=== PATIENT | female | born 1940 | race Caucasian/White ===

== ENCOUNTER 2022-05-23 10:16 | Inpatient (IN) | payer OTHER ==
[~2022-05-23] VITALS: Ht 134.6 cm; Wt 46.4 kg
--- NOTE | 2022-05-23 10:30 | NUR ---
MELINDA AP unit 355 From [facility] Loss of appetite/eating <20% of meals since april". The patient is alert to her name. In room air. Respiration regular and unlabored. The patient is attached to the monitor. Warm blanket provided for comfort. Will continue to monitor the patient.
--- NOTE | 2022-05-23 10:36 | NUR ---
covid antigen swab done and sent to the lab
[2022-05-23] MEDS ORDERED: ACET-2605 PO (10:37)
[2022-05-23] MEDS ORDERED: MELA5TAB PO (10:37)
[2022-05-23] MEDS ORDERED: ASPI-1169 PO (10:37)
[2022-05-23] MEDS ORDERED: LEVO25TA9 GT (10:37)
[2022-05-23] MEDS ORDERED: ATOR10TA PO (10:37)
[2022-05-23] MEDS ORDERED: GLUC1KIT IM (10:37)
[2022-05-23] MEDS ORDERED: DEXT38GE12 PO (10:37)
[2022-05-23] MEDS ORDERED: MIRT7.5T10 PO (10:37)
[2022-05-23] MEDS ORDERED: ACET-868 PO (10:37)
[2022-05-23] MEDS ORDERED: METF-440 PO (10:37)
--- NOTE | 2022-05-23 10:51 | NUR ---
IV LINE IS ESTABLISHED, BLOOD SPECIMEN COLLECTED AND SENT TO THE LAB. THE LINE IS SALINE LOCKED.
[2022-05-23 11:00] LABS: BASOPHILS % (AUTO) 0.4 % (0.0-2.0); EOSINOPHILS % (AUTO) 0.7 % (0.0-6.0); HEMATOCRIT 41 % (33-45); HEMOGLOBIN 13.4 g/dL (11.5-14.8); LYMPHOCYTES # (AUTO) 0.7 K/uL (0.8-4.8); LYMPHOCYTES % (AUTO) 11.3 % (20.0-44.0); MEAN CORPUSCULAR HGB CONC 33 g/dl (31.0-36.0); MEAN CORPUSCULAR VOLUME 92 fL (82-100); MONOCYTES # (AUTO) 0.5 K/uL (0.1-1.30); MONOCYTES % (AUTO) 7.5 % (2.0-12.0); NEUTROPHILS # (AUTO) 4.8 K/uL (1.8-8.9); NEUTROPHILS % (AUTO) 80.1 % (43.0-81.0); PLATELET COUNT (AUTO) 433 K/uL (150-450); RED BLOOD CELL COUNT(AUTO) 4.45 MIL/uL (4.0-5.2)
[2022-05-23] MEDS ORDERED: IV NS 0.9% 1,000 ML BAG IV ONE (11:00)
[2022-05-23 11:14] LABS: CALCIUM, SERUM 8.4 mg/dL (8.5-10.1); CARBON DIOXIDE 30 mmol/L (21-32); CHLORIDE 105 mmol/L (98-107); CREATININE 0.9 mg/dL (0.6-1.3); GLUCOSE 134 mg/dL (74-106); SODIUM SERUM 141 mmol/L (136-145); UREA NITROGEN, BLOOD 35 mg/dL (7-18)
[2022-05-23 11:20] LABS: ALANINE AMINOTRANSFERASE 12 U/L (12-78); ALBUMIN 2.6 g/dL (3.4-5.0); ALKALINE PHOSPHATASE 170 U/L (46-116); ASPARTATE AMINOTRANSFERASE 18 U/L (15-37); BILIRUBIN,DIRECT 0.4 mg/dL (0.0-0.2); BILIRUBIN,TOTAL 1.4 mg/dL (0.2-1.0); LIPASE 78 U/L (73-393)
--- NOTE | 2022-05-23 11:39 | NUR ---
URINE COLLECTED AND SENT TO THE LAB
[2022-05-23 12:16] LABS: BILIRUBIN,URINE SMALL (NEGATIVE); COLOR,URINE DARK YELLOW (YELLOW); LEUKOCYTE ESTERASE ,URINE NEGATIVE (NEGATIVE); NITRITE, URINE NEGATIVE (NEGATIVE); PROTEIN,URINE 30 mg/dl (NEGATIVE); UGLUCOSE 100 MG/DL mg/dL (NEGATIVE)
[2022-05-23 13:13] LABS: BACTERIA,URINE Few /HPF (None Seen); RBC,URINE 0-2 /HPF (0-2); WBC,URINE 0-2 /HPF (0-3)
[2022-05-23 13:14] LABS: MUCUS,URINE Moderate /LPF (None Seen); URINE AMORPHOUS URATE Few /HPF (None Seen)
[2022-05-23] MEDS ORDERED: PIPERACILLIN /TAZOBACTAM 3.375 G in IV D5W 50 ML IV ONE (14:00)
--- NOTE | 2022-05-23 14:40 | NUR ---
GOING TO 115.2 ADMITING AWARE.
--- NOTE | 2022-05-23 14:58 | NUR ---
REPORT GIVEN TO NURSE NEUMANN FOR MADYSON
--- NOTE | 2022-05-23 15:21 | NUR ---
PT TRANFERRED TO MED SURG FLOOR IN STABLE CONDITION
--- NOTE | 2022-05-23 15:30 | NUR ---
RN NOTE RECEIVED PATIENT FOR MADYSON IN STABLE CONDITION
[2022-05-23 16:00] VITALS: BP 138/85
[2022-05-23] MEDS ORDERED: DEXTROSE 50%-WATER 50 ML DISP.SYRIN IV PRN (16:00)
[2022-05-23] MEDS ORDERED: ONDANSETRON HCL/PF 4 MG/2 ML VIAL IVP PRN (16:00)
[2022-05-23] MEDS: CEFTRIAXONE 1 G in IV D5W 50 ML IV SCH (17:47)
[2022-05-23] MEDS: PANTOPRAZOLE 40 MG VIAL IV SCH (17:48)
[2022-05-23] MEDS: BLOOD SUGAR DIAGNOSTIC 1 EACH STRIP IN SCH (17:48)
[2022-05-23] MEDS: IV D5/ 0.9% NACL 1,000 ML IV PRN (17:48)
[2022-05-23] MEDS: INSULIN REGULAR, HUMAN 100 UNIT/ML 3 ML VIAL SQ PRN (17:49)
--- NOTE | 2022-05-23 19:10 | NUR ---
RN NOTES RECEIVED PT FOR CONTINUITY OF CARE. PATIENT A/OX1 IN NO S/SX OF ACUTE DISTRESS AT THIS TIME; CURRENTLY ON 2L OF 02 VIA NC; WITH 02 SAT >95% AT THIS TIME. FAMILY @BEDSIDE NO IV ACCESS AT THIS TIME, WILL ATTEMPT TO PLACE NEW IV LINE WITHIN THE SHIFT ENSURE SAFETY MEASURES WITHIN THE SHIFT. PATIENT BED ALARM IS ON. HEAD OF BED ELEVATED. BED IS LOCKED, IN LOWEST POSITION AND SIDE RAILS UP. CALL LIGHT WITHIN REACH OF THE PATIENT. WILL CONTINUE TO MONITOR AND REASSESS FOR ANY CHANGES AND WILL CARRY OUT ANY ONGOING AND ACTIVE MD ORDER.
--- NOTE | 2022-05-23 19:19 | NUR ---
RN NOTE SPOKE TO KEN (PATIENTS DAUGHTER) RECEIVED PHONE CONSENT FOR THORACENTESIS AND ACUTE MEDICAL RESTRAINTS IF NEEDED. KEKE LA SPOKE WITH DAUGHTER WELL.
--- NOTE | 2022-05-23 19:21 | NUR ---
RN NOTE PATIENT RESTING IN BED A/OX2 FAMILY MEMBERS AT BED SIDE ON RA WITH NO COMPLAINTS OF SOB OR PAIN. PATIENT PENDING IV ACCES. SAFETY MEASURES IN PLACE WILL ENDORSE TO NIGHT NURSE FOR MADYSON.
--- NOTE | 2022-05-23 19:45 | NUR ---
RN NOTES FACILITATED INSERTION OF ADDITIONAL IV LINE/ACCESS @ R HAND G#24; SALINE LOCK, SECURED, INTACT AND FLUSHING WELL. SOLAR LAB TECHNICIAN MADE AWARE.
[2022-05-23 20:00] VITALS: BP 115/74
--- NOTE | 2022-05-23 21:50 | NUR ---
RN NOTES PT NOTED TO BE MORE LETHARGIC AND UNRESPONSIVE, V/S WNL HR: 93 RR: 17, TEMP 98.1, O2 SAT 99% @2L OF O2 BP: 118/68 . BLOOD SUGAR 120, EXPANDING MACHINE OPERATOR MADE AWARE AND NOTIFIED ONCALL ( LINN RIVERA) SECURED ORDER TO CHANGE STATUS TO TELE, WILL CONTINUE TO MONITOR AND ASSESS THROUGHOUT THE SHIFT.
[2022-05-24] VITALS: BP 123/77
[2022-05-24] MEDS: BLOOD SUGAR DIAGNOSTIC 1 EACH STRIP IN SCH ×4 (00:29→17:09)
[2022-05-24] MEDS: INSULIN REGULAR, HUMAN 100 UNIT/ML 3 ML VIAL SQ PRN ×3 (00:29→17:50)
--- NOTE | 2022-05-24 06:47 | NUR ---
RN CLOSING NOTE: PATIENT REMAINS IN ROOM IN NO SIGNS OF RESPIRATORY DISTRESS, PATIENT STILL ON 2L OF O2 VIA NC;TOLERATING WELL SATURATING @ >95% SP02. PT NOW ON TELE STATUS. PLAN TODAY FOR THORACENTESIS CONSENT SECURED; IN PT'S CHART. SAFETY MEASURES IMPLEMENTED, BED IN LOWEST POSITION, LOCKED, SIDE RAILS UP, CALL LIGHT WITHIN REACH. ALL NEEDS AND ORDERS ADDRESSED DURING THE SHIFT. IV ACCESS MAINTAINED INTACT, SECURED AND FLUSHING WELL. ALL DUE MEDS GIVEN ORDERED & SCHEDULED ; PATIENT TOLERATED WELL. PATIENT KEPT CLEAN AND COMFORTABLE WITHIN THE SHIFT. PATIENT ENDORSED TO INCOMING SHIFT RN WITH STABLE VITAL SIGN AND FOR CONTINUITY OF CARE.
[2022-05-24 07:45] LABS: BASOPHILS % (AUTO) 0.5 % (0.0-2.0); EOSINOPHILS % (AUTO) 0.7 % (0.0-6.0); HEMATOCRIT 37 % (33-45); LYMPHOCYTES # (AUTO) 0.8 K/uL (0.8-4.8); LYMPHOCYTES % (AUTO) 11.2 % (20.0-44.0); MEAN CORPUSCULAR HGB CONC 33 g/dl (31.0-36.0); MEAN CORPUSCULAR VOLUME 92 fL (82-100); MONOCYTES # (AUTO) 0.7 K/uL (0.1-1.30); MONOCYTES % (AUTO) 9.8 % (2.0-12.0); NEUTROPHILS # (AUTO) 5.3 K/uL (1.8-8.9); NEUTROPHILS % (AUTO) 77.8 % (43.0-81.0); PLATELET COUNT (AUTO) 320 K/uL (150-450); RED BLOOD CELL COUNT(AUTO) 3.98 MIL/uL (4.0-5.2); WHITE BLOOD COUNT (AUTO) 6.8 K/uL (4.3-11.0)
[2022-05-24 08:00] VITALS: BP 118/70
[2022-05-24] MEDS: PANTOPRAZOLE 40 MG VIAL IV SCH ×2 (08:01→08:09)
[2022-05-24 08:03] LABS: CALCIUM, SERUM 7.7 mg/dL (8.5-10.1); CARBON DIOXIDE 27 mmol/L (21-32); CHLORIDE 109 mmol/L (98-107); CREATININE 0.8 mg/dL (0.6-1.3); GLUCOSE 130 mg/dL (74-106); MAGNESIUM 1.9 mg/dL (1.8-2.4); PHOSPHORUS 2.7 mg/dL (2.5-4.9); POTASSIUM 3.2 mmol/L (3.5-5.1); SODIUM SERUM 142 mmol/L (136-145); UREA NITROGEN, BLOOD 29 mg/dL (7-18)
[2022-05-24 08:04] LABS: CHOLESTEROL 117 mg/dL (<200); HDL CHOLESTEROL 56 mg/dL (40-60); LDL 52 mg/dL (0-99); TRIGLYCERIDES 53 mg/dL (30-150)
--- NOTE | 2022-05-24 10:03 | NUR ---
RN NOTE PT RECEIVED RESTING IN BED, AWAKE AND RESPONSIVE TO STIMULI. CONTINUES ON O2 @2L VIA NC. NOT IN RESPI DISTRESS. ALIDA MIDLINE IN PLACE WITH IVF D5NS @75/HR. TOLERATING WELL. PT REMAINS NPO. SAFETY MEASURES FOLLOWED. WILL CONT TO MONITOR.
[2022-05-24] MEDS: IV D5/ 0.9% NACL 1,000 ML IV PRN (11:10)
[2022-05-24] MEDS: POTASSIUM CL. PREMIX PERIPHER. 50 ML IV SCH ×2 (12:59→13:58)
--- NOTE | 2022-05-24 14:02 | NUR ---
RN NOTE PT S/P THORACENTESIS AND PARACENTESIS. STAT CHEST X RAY ORDERED. WILL CONT TO MONITOR. V/S STABLE. NO SS OF ACTIVE BLEEDING NOTED.
[2022-05-24 16:00] VITALS: BP 113/51
--- NOTE | 2022-05-24 16:29 | NUR ---
RN NOTE PLEURAL FLUID AND ASCITES SPECIMEN BROUGHT TO LAB.
[2022-05-24] MEDS: CEFTRIAXONE 1 G in IV D5W 50 ML IV SCH (17:09)
--- NOTE | 2022-05-24 19:09 | NUR ---
RN NOTE PT RESTING IN BED, AWAKE AND RESPONSIVE TO STIMULI. CONTINUES ON O2 @2L VIA NC. NOT IN RESPI DISTRESS. ALIDA MIDLINE IN PLACE WITH IVF D5NS @75/HR. TOLERATING WELL. PT REMAINS NPO. SAFETY MEASURES FOLLOWED. PT S/P THORACENTESIS AND PARACENTESIS. NO SS OF ACTIVE BLEEDING NOTED. V/S STABLE. DUE MEDS GIVEN, AM/PM CARE DONE. WILL CONT TO MONITOR.
--- NOTE | 2022-05-24 19:56 | NUR ---
RN OPENING NOTE PATIENT AWAKE IN BED. A/OX1. NO S/S OF DISTRESS, BREATHING WITHOUT DIFFICULTY ON 2L NC. ALIDA MIDLINE #18 INTACT AND PATENT W/ D5NS 75ML/HR. TELE READS SR 85. SAFETY MEASURES IN PLACE: BED LOCKED AND AT LOWEST POSITION, RAILS UP X2, CALL LEVINE WITHIN REACH. WILL CONTINUE TO MONITOR THE PATIENT.
[2022-05-25 00:01] VITALS: BP 104/53
[2022-05-25] MEDS: BLOOD SUGAR DIAGNOSTIC 1 EACH STRIP IN SCH ×3 (00:44→17:47)
[2022-05-25] MEDS: INSULIN REGULAR, HUMAN 100 UNIT/ML 3 ML VIAL SQ PRN (00:45)
--- NOTE | 2022-05-25 07:32 | NUR ---
MAIL RIDER OPENING NOTES RECEIVED PATIENT IN BED, AWAKE, ALERT X0. ON OXYGEN @ 2L/MIN VIA N/C WITH OXYGEN SATURATION OF 100%. NO RESPIRATORY DISTRESS NOTED, BREATHING EVEN AND UNLABORED. ON SR HR OF 72. HAS IV SITE ON LEFT UPPER ARM MIDLINE RUNNING WITH D5NS @ 75 ML/HR, IV SITE WITH NO S/S OF INFILTRATION NOTED. HOB ELEVATED, BED LOCKED AND IN LOWEST POSITION, CALL LIGHT WITHIN REACH, WILL TURN AND REPOSITION ORDERED. ALL SAFETY MEASURES IN PLACE. WILL CONTINUE TO MONITOR PATIENT THROUGH SHIFT.
[2022-05-25 08:00] VITALS: BP 112/52
[2022-05-25 08:48] LABS: BASOPHILS % (AUTO) 0.3 % (0.0-2.0); EOSINOPHILS % (AUTO) 0.8 % (0.0-6.0); HEMATOCRIT 37 % (33-45); HEMOGLOBIN 11.9 g/dL (11.5-14.8); LYMPHOCYTES # (AUTO) 0.8 K/uL (0.8-4.8); LYMPHOCYTES % (AUTO) 10.9 % (20.0-44.0); MEAN CORPUSCULAR HGB CONC 32 g/dl (31.0-36.0); MEAN CORPUSCULAR VOLUME 94 fL (82-100); MONOCYTES # (AUTO) 0.6 K/uL (0.1-1.30); MONOCYTES % (AUTO) 8.6 % (2.0-12.0); NEUTROPHILS # (AUTO) 5.5 K/uL (1.8-8.9); NEUTROPHILS % (AUTO) 79.4 % (43.0-81.0); PLATELET COUNT (AUTO) 353 K/uL (150-450); RED BLOOD CELL COUNT(AUTO) 3.95 MIL/uL (4.0-5.2)
[2022-05-25] MEDS: PANTOPRAZOLE 40 MG VIAL IV SCH (08:52)
--- NOTE | 2022-05-25 09:27 | NUR ---
RECEIVED A CALL FROM DAUGHTER KEN [phone] AND UPDATED OF PATIENT'S STABLE CONDITION
[2022-05-25 09:29] LABS: CALCIUM, SERUM 7.7 mg/dL (8.5-10.1); CREATININE 0.7 mg/dL (0.6-1.3); PHOSPHORUS 2.5 mg/dL (2.5-4.9); POTASSIUM 3.6 mmol/L (3.5-5.1)
--- NOTE | 2022-05-25 09:35 | NUR ---
CALL RECEIVED FROM [facility] RADIOLOGY DEPT EXT [phone] AND WAS INFORMED THAT THE PATIENT'S ORDER FOR CT SCAN IS FOR IV AND PO CONTRAST. INFORMED HIM THAT THE PATIENT IS NPO DUE TO FAILED SWALLOWING EVAL AND THAT THE PATIENT MAY NEED IV CONTRAST ONLY. LEFT A MESSAGE FOR GEOVANNA CROUCH
--- NOTE | 2022-05-25 09:55 | NUR ---
ORDER RECEIVED FROM GEOVANNA MITTAL THAT IT'S OK FOR IV CONTRAST ONLY. ORDER NOTED AND CARRIED OUT. NOTIFIED CT SCAN DEPT EXT [phone], SPOKE WITH MANPREET
[2022-05-25] MEDS ORDERED: IV NS 0.9% 250 ML IV ONE (11:23)
[2022-05-25] MEDS ORDERED: IOHEXOL-300 100 ML VIAL IV ONE (11:23)
[2022-05-25] MEDS ORDERED: CT SWABBABLE VALVE TRANS SET 1 EA INFUS.SET MC ONE (11:23)
--- NOTE | 2022-05-25 15:00 | NUR ---
PATIENT ACCIDENTALLY PULLED PUT HER OTHER SALINE LOCK ON HER RIGHT HAND, WHILE THE DAUGHTER WAS WITH HER. NO BLEEDING NOTED, PATIENT STILL HAS IV MIDLINE ACCESS ON LEFT UPPER ARM
[2022-05-25 16:00] VITALS: BP 100/56
[2022-05-25] MEDS: CEFTRIAXONE 1 G in IV D5W 50 ML IV SCH (17:40)
--- NOTE | 2022-05-25 18:56 | NUR ---
RN CLOSING NOTES PATIENT IN BED, AWAKE, ALERT X0 WITH FAMILY AT BEDSIDE. ON OXYGEN @ 2L/MIN VIA N/C WITH OXYGEN SATURATION OF 100%. NO RESPIRATORY DISTRESS NOTED, BREATHING EVEN AND UNLABORED. ON SR HR OF 72. HAS IV SITE ON LEFT UPPER ARM MIDLINE RUNNING WITH D5NS @ 75 ML/HR, IV SITE WITH NO S/S OF INFILTRATION NOTED. HOB ELEVATED, BED LOCKED AND IN LOWEST POSITION, CALL LIGHT WITHIN REACH. ALL SAFETY MEASURES IMPLEMENTED. WILL ENDORSE TO NEXT SHIFT NURSE FOR CONTINUITY OF CARE
--- NOTE | 2022-05-25 19:20 | NUR ---
RN NOTES RECEIVED PT FOR CONTINUITY OF CARE. PATIENT A/OX1 IN NO S/SX OF ACUTE DISTRESS AT THIS TIME; CURRENTLY ON 2L OF 02 VIA NC; WITH 02 SAT >95% AT THIS TIME. FAMILY @BEDSIDE NO IV ACCESS AT THIS TIME. IV ACCESS PATENT AND INTACT WITH IV FLUID RUNNING ORDERED. SAFETY MEASURES WITHIN THE SHIFT. PATIENT BED ALARM IS ON. HEAD OF BED ELEVATED. BED IS LOCKED, IN LOWEST POSITION AND SIDE RAILS UP. CALL LIGHT WITHIN REACH OF THE PATIENT. WILL CONTINUE TO MONITOR AND REASSESS FOR ANY CHANGES AND WILL CARRY OUT ANY ONGOING AND ACTIVE MD ORDER. Addendum: 05/25/22 at 2340 by LIZA CORCORAN RN RN NOTES RECEIVED PT FOR CONTINUITY OF CARE. PATIENT A/OX1 IN NO S/SX OF ACUTE DISTRESS AT THIS TIME; CURRENTLY ON 2L OF 02 VIA NC; WITH 02 SAT >95% AT THIS TIME. FAMILY @BEDSIDE. IV ACCESS PATENT AND INTACT WITH IV FLUID RUNNING ORDERED. SAFETY MEASURES WITHIN THE SHIFT. PATIENT BED ALARM IS ON. HEAD OF BED ELEVATED. BED IS LOCKED, IN LOWEST POSITION AND SIDE RAILS UP. CALL LIGHT WITHIN REACH OF THE PATIENT. WILL CONTINUE TO MONITOR AND REASSESS FOR ANY CHANGES AND WILL CARRY OUT ANY ONGOING AND ACTIVE MD ORDER.
[2022-05-25 20:00] VITALS: BP 125/64
[2022-05-25] MEDS: IV D5/ 0.9% NACL 1,000 ML IV PRN (22:03)
[2022-05-26] VITALS: BP 111/59
[2022-05-26] MEDS: BLOOD SUGAR DIAGNOSTIC 1 EACH STRIP IN SCH ×5 (01:10→23:43)
[2022-05-26] MEDS: INSULIN REGULAR, HUMAN 100 UNIT/ML 3 ML VIAL SQ PRN ×3 (01:12→23:54)
[2022-05-26 04:00] VITALS: BP 100/57
--- NOTE | 2022-05-26 04:00 | NUR ---
RN NOTES PATIENT REMAINED TO BE IN NO SIGNS OF ACUTE RESPIRATORY DISTRESS , VITAL SIGNS STABLE AT THIS TIME. REGULAR TURNING AND REPOSITIONING DONE, AM PATIENT CARE . RENDERED WILL CONTINUE TO MONITOR AND REASSESS FOR ANY CHANGES THROUGHOUT THE SHIFT.
--- NOTE | 2022-05-26 06:44 | NUR ---
RN CLOSING NOTE: PATIENT REMAINS IN ROOM IN NO SIGNS OF RESPIRATORY DISTRESS, PATIENT STILL ON 2L OF 02 VIA NC;TOLERATING WELL SATURATING @ 95% SP02. PLAN: F/U CULTURES, CONTINUE ABX & EVAL FOR PEG.SAFETY MEASURES IMPLEMENTED, BED IN LOWEST POSITION, LOCKED, SIDE RAILS UP, CALL LIGHT WITHIN REACH. ALL NEEDS AND ORDERS ADDRESSED DURING THE SHIFT. IV ACCESS MAINTAINED INTACT, SECURED AND FLUSHING WELL. ALL DUE MEDS GIVEN ORDERED & SCHEDULED ; PATIENT TOLERATED WELL. PATIENT KEPT CLEAN AND COMFORTABLE WITHIN THE SHIFT. PATIENT ENDORSED TO INCOMING SHIFT RN WITH STABLE VITAL SIGN AND FOR CONTINUITY OF CARE.
[2022-05-26 07:07] LABS: AFP, TUMOR MARKER <0.9 ng/mL (0.0-8.7); CANCER AG, 15-3 25.6 U/mL (0.0-25.0); IMMUNOGLOBULIN A, SERUM 210 mg/dL (64-422); IMMUNOGLOBULIN G, SERUM 1103 mg/dL (586-1602); IMMUNOGLOBULIN M, SERUM 116 mg/dL (26-217)
--- NOTE | 2022-05-26 07:30 | NUR ---
TAXICAB STARTER MONITOR: RECEIVED PATIENT IN BED, AWAKE, ALERT, ORIENTED X 1. NO SOB NOTED. ON OXYGEN @ 2L/MIN VIA N/C. BREATHING EVEN AND UNLABORED. ON SR ON TELE MONITOR WITH HR OF 66. MIDLINE IV ACCESS # 18 ON LEFT UPPER ARM INTACT, RUNNING WITH D5NS @ 75 ML/HR. NOTED WITH GOOD ARM CIRCULATION ON BOTH ARMS, WILL RELEASE AND REAPPLY RESTRAINTS ORDERED FOR SAFETY. HOB ELEVATED. BED LOCKED AND IN LOWEST POSITION. CALL LIGHT WITHIN REACH. ALL SAFETY MEASURES IMPLEMENTED. WILL CONTINUE TO MONITOR PATIENT THROUGHOUT SHIFT.
[2022-05-26 08:00] VITALS: BP 122/36
[2022-05-26] MEDS: PANTOPRAZOLE 40 MG VIAL IV SCH (09:23)
[2022-05-26 09:32] LABS: BASOPHILS % (AUTO) 0.1 % (0.0-2.0); EOSINOPHILS % (AUTO) 0.8 % (0.0-6.0); HEMATOCRIT 37 % (33-45); LYMPHOCYTES # (AUTO) 0.6 K/uL (0.8-4.8); LYMPHOCYTES % (AUTO) 8.4 % (20.0-44.0); MEAN CORPUSCULAR HGB CONC 33 g/dl (31.0-36.0); MEAN CORPUSCULAR VOLUME 92 fL (82-100); MONOCYTES # (AUTO) 0.5 K/uL (0.1-1.30); MONOCYTES % (AUTO) 7.4 % (2.0-12.0); NEUTROPHILS # (AUTO) 6.1 K/uL (1.8-8.9); NEUTROPHILS % (AUTO) 83.3 % (43.0-81.0); PLATELET COUNT (AUTO) 332 K/uL (150-450); WHITE BLOOD COUNT (AUTO) 7.3 K/uL (4.3-11.0)
[2022-05-26 09:54] LABS: CALCIUM, SERUM 7.8 mg/dL (8.5-10.1); CREATININE 0.7 mg/dL (0.6-1.3); PHOSPHORUS 2.7 mg/dL (2.5-4.9)
[2022-05-26 10:07] LABS: POTASSIUM 2.8 mmol/L (3.5-5.1)
[2022-05-26] MEDS: POTASSIUM CL. PREMIX PERIPHER. 50 ML IV SCH ×6 (10:18→16:00)
[2022-05-26] MEDS: IV D5/ 0.9% NACL 1,000 ML IV PRN (10:45)
[2022-05-26] MEDS ORDERED: IV D5W 1,000 ML IV PRN (12:00)
[2022-05-26 15:08] LABS: *SPE A/G RATIO 0.6 (0.7-1.7); *SPE ALPHA-1-GLOBULIN 0.4 g/dL (0.0-0.4); *SPE ALPHA-2-GLOBULIN 0.9 g/dL (0.4-1.0); *SPE BETA GLOBULIN 0.9 g/dL (0.7-1.3); *SPE M-SPIKE Not Observed g/dL (Not Observed)
[2022-05-26 16:00] VITALS: BP 119/62
--- NOTE | 2022-05-26 16:28 | NUR ---
RECEIVED AN ORDER FOR NGT PLACEMENT, TRIED TO DO IT MORE THAN ONE TIME BUT UNABLE TO, CHARGE NURSE TRIED WELL BUT UNSUCCESSFUL. WILL RETRY LATER
--- NOTE | 2022-05-26 16:55 | NUR ---
NGT SUCCESSFULLY PLACED FOR THE PATIENT ON RIGHT NARE BY ANOTHER NURSE. STAT CHEST X-RAY ORDERED FOR THE PATIENT
--- NOTE | 2022-05-26 17:20 | NUR ---
CXR DONE AT BEDSIDE FOR PLACEMENT OF NGT
[2022-05-26] MEDS: CEFTRIAXONE 1 G in IV D5W 50 ML IV SCH (17:38)
--- NOTE | 2022-05-26 18:00 | NUR ---
PER CHEST X-RAY, TUBE TERMINATES IN THE STOMACH, CHECKED FOR PLACEMENT, NO RESIDUAL. NGT INTACT. PER MACHINERY ENGINEER, NGT FEEDING TO BE STARTED FOR GLUCERNA 1.2 AT 10 ML/HR MAXIMUM IS 40. WILL ENDORSE TO NEXT SHIFT NURSE
[2022-05-26] MEDS ORDERED: GLUCERNA 1.2 1,000 ML BOTTLE NG PRN (18:30)
--- NOTE | 2022-05-26 19:00 | NUR ---
RN CLOSING NOTES PATIENT IN BED, AWAKE, ALERT X0. ON OXYGEN @ 2L/MIN VIA N/C WITH OXYGEN SATURATION OF 100%. NO RESPIRATORY DISTRESS NOTED, BREATHING EVEN AND UNLABORED. ON SR HR OF 74. HAS IV SITE ON LEFT UPPER ARM MIDLINE RUNNING WITH D5NS @ 75 ML/HR, IV SITE WITH NO S/S OF INFILTRATION NOTED. NGT INTACT, NO RESIDUAL NOTED. BILATERAL SOFT WRIST RESTRAINTS APPLIED FOR SAFETY, BILATERAL HANDS WITH GOOD CIRCULATION NOTED. BED LOCKED AND IN LOWEST POSITION, HOB KEPT ELEVATED. CALL LIGHT WITHIN REACH. ALL SAFETY MEASURES IMPLEMENTED. WILL ENDORSE TO NEXT SHIFT NURSE FOR CONTINUITY OF CAR
--- NOTE | 2022-05-26 19:15 | NUR ---
TELE1 RN NOTES RECEIVED LAYING COMFORTABLY ON BED BREATHING EASY,NO SOB,A/O X1-2.ABLE TO COMMUNICATE WITH GRAND DAUGHTER WITH NGT RIGHT NARES FOR FEEDING,DX- FAILURE TO THRIVE,PLACEMENT PATENT ON AUSCULTATION,WITHN LEFT UPPER ARM MIDLINE FOR MEDS AND HYDRATION.FALL RISK,ON BILATERAL SOFT WRIST RESTRAINTS FOR SAFETY,TRYING TO PULL OUT IV TUBINGS.WILL CONTINUE TO MONITOR STATUS.
--- NOTE | 2022-05-26 22:11 | NUR ---
TELE1 RN NOTES IVF CHANGED TO D5W @75ML/HR RATE ORDERED.
--- NOTE | 2022-05-26 23:58 | NUR ---
TELE1 RN NOTES ACCUU-CHECKS BLOOD SUGAR CHECKED 139,COVERED WITH HUMULIN R 2 UNITS PER SLIDING SCALE.NGT FEEDING IN PROGRESS,FLUSHED WITH WATER 150 ML THIS TIME.WILL CONTINUE TO MONITOR STATUS.
[2022-05-27] VITALS: BP 125/65
[2022-05-27 04:00] VITALS: BP 115/71
--- NOTE | 2022-05-27 04:30 | NUR ---
TELE1 RN NOTES MORNING CARE RENDERED BY OXANA.
--- NOTE | 2022-05-27 05:45 | NUR ---
TELE1 RN NOTES ACCU-CHECK BLOOD SUGAR CHECK 146.COVERED WITH HUMULIN R 2 UNITS PER SLIDING SCALE. GT FEEDING NOW INCREASED TO 20ML/HR RATE.NO N/V/DIARRHEA NOTED
[2022-05-27] MEDS: BLOOD SUGAR DIAGNOSTIC 1 EACH STRIP IN SCH ×4 (05:49→23:09)
[2022-05-27] MEDS: INSULIN REGULAR, HUMAN 100 UNIT/ML 3 ML VIAL SQ PRN ×2 (05:51→18:46)
--- NOTE | 2022-05-27 06:42 | NUR ---
TELE1 RN NOTES NO SIGNIFICANT CHANGE IN STATUS.NGR FEEDING TOLERATED WELL.NO N/V/D NOTED.NO RESIDUAL VOLUME.HOB ELEVATED FOR ASPIRATION PRECAUTION.IN NO ACUTE DISTRESS.ENDORSED TO DAY NUSRE FOR MADYSON.
--- NOTE | 2022-05-27 07:30 | NUR ---
RN OPENING NOTE PATIENT IS IN BED, ASLEEP BUT EASILY AROUSABLE, ALERT ORIENTED X 1. BREATHING UNLABORED AND NOT IN ANY FORM OF DISTRESS. WITH OXYGEN VIA NASAL CANNULA AT 2L/MIN, SATTING AT 100%. SINUS RHYTHM ON CUSTOMER SERVICE REP. WITH BILATERAL SOFT WRIST RESTRAINTS, ADEQUATE CIRCULATION NOTED ON BOTH EXTREMITIES. NGT INTACT AND INFUSING WITH GLUCERNA AT 10 ML/HR. LEFT UPPER ARM MIDLINE INTACT INFUSING WITH D5W AT 75 ML/HR, NO INFILTRATION NOTED ON IV SITE. BED IS LOCKED IN LOWEST POSITION, 3 SIDE RAILS UP, CALL LIGHT WITHIN REACH. WILL CONTINUE TO MONITOR THROUGHOUT SHIFT.
[2022-05-27 07:31] LABS: BASOPHILS % (AUTO) 0.3 % (0.0-2.0); EOSINOPHILS % (AUTO) 0.6 % (0.0-6.0); HEMATOCRIT 40 % (33-45); HEMOGLOBIN 12.7 g/dL (11.5-14.8); LYMPHOCYTES # (AUTO) 0.7 K/uL (0.8-4.8); LYMPHOCYTES % (AUTO) 8.1 % (20.0-44.0); MEAN CORPUSCULAR HGB CONC 32 g/dl (31.0-36.0); MEAN CORPUSCULAR VOLUME 93 fL (82-100); MONOCYTES # (AUTO) 0.7 K/uL (0.1-1.30); MONOCYTES % (AUTO) 8.1 % (2.0-12.0); NEUTROPHILS # (AUTO) 7.5 K/uL (1.8-8.9); NEUTROPHILS % (AUTO) 82.9 % (43.0-81.0); PLATELET COUNT (AUTO) 312 K/uL (150-450); RED BLOOD CELL COUNT(AUTO) 4.26 MIL/uL (4.0-5.2)
[2022-05-27 07:44] LABS: CALCIUM, SERUM 7.9 mg/dL (8.5-10.1); CARBON DIOXIDE 26 mmol/L (21-32); CHLORIDE 111 mmol/L (98-107); CREATININE 0.8 mg/dL (0.6-1.3); GLUCOSE 171 mg/dL (74-106); MAGNESIUM 1.8 mg/dL (1.8-2.4); PHOSPHORUS 2.5 mg/dL (2.5-4.9); POTASSIUM 3.5 mmol/L (3.5-5.1); SODIUM SERUM 144 mmol/L (136-145); UREA NITROGEN, BLOOD 22 mg/dL (7-18)
[2022-05-27 08:00] VITALS: BP 130/71
[2022-05-27] MEDS: PANTOPRAZOLE 40 MG VIAL IV SCH (09:56)
[2022-05-27 12:00] VITALS: BP 125/45
--- NOTE | 2022-05-27 12:49 | NUR ---
procurement technician called paracentesis will be done sunday unles it is urgent,clarified with jacqueline ennis and ok to do it sunday.
--- NOTE | 2022-05-27 14:57 | NUR ---
HERNANDEZ BOSTON TALKED WITH THE RN, AND PER RN IN CHARGE IT IS OK TO BE DONE ON SUNDAY
[2022-05-27] MEDS: MORPHINE SULFATE INJ 2 MG/ML DISP.SYRIN IV PRN (14:58)
--- NOTE | 2022-05-27 14:58 | NUR ---
RN NOTE PATIENT VERBALIZED BODY PAIN 6/10, FACIAL GRIMACING NOTED. WET FINISHER WOOL KYREI INFORMED. MORPHINE GIVEN VIA IVP ORDERED.
--- NOTE | 2022-05-27 15:58 | NUR ---
RN NOTE NO URINE OUTPUT FOR 8 HOURS, BLADDER IS DISTENDED. TRIED TO RELAX BLADDER AND STIMULATE URINATION BY APPLYING WARM COMPRESS, BUT WAS NOT SUCCESSFUL. CATTLE SPRAYER KYRIE INFORMED, WITHORDER FOR JARAMILLO CATHETER INSERTION. JARAMILLO CATHETER INSERTED, URINE OUTPUT NOTED TO BE DARK YELLOW. WILL CONTINUE TO MONITOR.
[2022-05-27 16:00] VITALS: BP 152/67
[2022-05-27] MEDS: CEFTRIAXONE 1 G in IV D5W 50 ML IV SCH (18:06)
--- NOTE | 2022-05-27 19:15 | NUR ---
RN CLOSING NOTE PATIENT REMAINED STABLE THROUGHOUT SHIFT. BREATHING UNLABORED AND NOT IN ANY FORM OF DISTRESS. TOLERATES O2 VIA NASAL CANNULA AT 2L/MIN. LEFT UPPER ARM MIDLINE INTACT AND PATENT. JARAMILLO CATHETER INTACT AND PATENT. STILL ON BILATERAL SOFT WRIST RESTRAINTS DUE TO MULTIPLE ATTEMPTS TO REMOVE NG TUBE. ALL HOSPITAL SAFETY PRECAUTIONS KEPT IN PLACE. WILL ENDORSE TO EVICTION SPECIALIST NURSE.
--- NOTE | 2022-05-27 19:59 | NUR ---
RN Note Received patient in bed, sleeping, arousable to name and touch. Breathing even and unlabored. on 2L/min via nasal cannula. tolerating well. On tele monitoring. no s/s of distress. Skin is warm and dry to touch. Noted with NGT in left nare infusing glucerna at 30 cc/hr. No residual. Positive placement via auscultation. noted with bilateral soft wrist restraints. Released to assist with passive range of motion. N s/s of skin breakdown around wrist. Left upper arm midline intact. no ivf infusing. Indwelling christian catheter draining tea colored urine by gravity. no bleeding noted. Daughter at bedside. no new concern. Patients bed is low, in locked position. Call light within reach. Will continue to monitor.
[2022-05-27 20:00] VITALS: BP 120/55
[2022-05-27] MEDS: GLUCERNA 1.2 1,000 ML BOTTLE NG PRN (22:29)
[2022-05-28] VITALS: BP 113/58
[2022-05-28 04:00] VITALS: BP 110/60
[2022-05-28] MEDS: BLOOD SUGAR DIAGNOSTIC 1 EACH STRIP IN SCH ×3 (05:21→18:01)
[2022-05-28] MEDS: INSULIN REGULAR, HUMAN 100 UNIT/ML 3 ML VIAL SQ PRN ×2 (05:22→18:03)
--- NOTE | 2022-05-28 07:30 | NUR ---
INFECTIOUS DISEASE PHYSICIAN OPENING Note Received patient in bed, sleeping, arousable to name and touch. Breathing even and unlabored. on 2L/min via nasal cannula. tolerating well. On tele monitoring. no s/s of distress. Skin is warm and dry to touch. Noted with NGT RUNNING glucerna at 30 cc/hr. No residual. Positive placement via auscultation. noted with bilateral soft wrist restraints. Released to assist with passive range of motion. N s/s of skin breakdown around wrist. Left upper arm midline intact. no ivf infusing. Indwelling christian catheter draining tea colored urine by gravity. no bleeding noteD. Patients bed is low, in locked position. Call light within reach. Will continue to monitor.
[2022-05-28 08:00] VITALS: BP 125/53
[2022-05-28] MEDS: PANTOPRAZOLE 40 MG VIAL IV SCH (08:06)
[2022-05-28] MEDS: MORPHINE SULFATE INJ 2 MG/ML DISP.SYRIN IV PRN ×2 (08:30→15:12)
[2022-05-28 12:00] VITALS: BP 131/62
--- NOTE | 2022-05-28 13:43 | NUR ---
Dr. Stanton, radiologist educational assistant teacher was not available to perform Paracentesis today. He asked procedure to be done tomorrow/ Sunday. Shona LA was informed.
[2022-05-28 16:00] VITALS: BP 123/71
--- NOTE | 2022-05-28 17:00 | NUR ---
rn notes: checked [id number].heldfeeding will recheck
[2022-05-28] MEDS: CEFTRIAXONE 1 G in IV D5W 50 ML IV SCH (17:03)
--- NOTE | 2022-05-28 18:30 | NUR ---
RN notes: checked residual 20 ml, resumed feeding pt tolerated feeding well.
[2022-05-28] MEDS: GLUCERNA 1.2 1,000 ML BOTTLE NG PRN (19:19)
--- NOTE | 2022-05-28 19:27 | NUR ---
THREADER CLOSING NOTE PATIENT REMAINED STABLE THROUGHOUT SHIFT. BREATHING UNLABORED AND NOT IN ANY FORM OF DISTRESS. TOLERATES O2 VIA NASAL CANNULA AT 2L/MIN. LEFT UPPER ARM MIDLINE INTACT AND PATENT. JARAMILLO CATHETER INTACT AND PATENT.COMPLAINED OF SEVERE ABDOMINAL PAIN TWICE IN MORNING SHIFT AND MORPHINE WAS GIVEN ORDERED STILL ON BILATERAL SOFT WRIST RESTRAINTS DUE TO MULTIPLE ATTEMPTS TO REMOVE NG TUBE. ALL HOSPITAL SAFETY PRECAUTIONS KEPT IN PLACE. ENDORSE TO FURNITURE SALES ASSOCIATE NURSE.
--- NOTE | 2022-05-28 19:30 | NUR ---
SLUBBER RUNNER NOTE PT IN BED SEMI AWAKE. MUMBLES, DTR AT BED SIDE. A/O X 0, NO DISTRESS OR DISCOMFORT NOTED. NO S/S OF PAIN NOTED. ON TELE SR HR 96. BILATERAL SOFT WRIST RESTRAINTS OFF DUE TO DTR WATCHING AT BED SIDE. NGT RT NARES FEEDING GLUCERNA AT 40 ML/HR, 0 ML RESIDUAL NOTED. F/C INTACT AND PATENT DRAINING YELLOWISH COLOR URINE VIA GRAVITY. KEPT HOB ELEVATED. KEPT HER DRY AND CLEAN. REPOSITION HER FOR COMFORT AND SKIN MANAGEMENT. SIDE RAILS UP X 3 AND CALL LIGHT WITHIN REACH. VSS. CONTINUE TO MONITOR HER.
[2022-05-28 20:00] VITALS: BP 141/66
--- NOTE | 2022-05-28 20:13 | NUR ---
SPRING ASSEMBLER SUPERVISOR NOTE DAUGHTER KEN AT BED SIDE. TALKED WITH HER REGARDING CODE STATUS. ACCORDING TO HER SHE DON'T WANT NO TUBES MEANS DNI. LINN RIVERA ELEMENT BURNER INFORMED AND RECEIVED NEW ORDER, ORDER NOTED AND CARRIED OUT.
[2022-05-29] VITALS: BP 121/31
[2022-05-29] MEDS: BLOOD SUGAR DIAGNOSTIC 1 EACH STRIP IN SCH ×5 (00:27→23:49)
[2022-05-29] MEDS: INSULIN REGULAR, HUMAN 100 UNIT/ML 3 ML VIAL SQ PRN ×3 (00:31→23:51)
[2022-05-29 04:00] VITALS: BP 123/66
--- NOTE | 2022-05-29 05:44 | NUR ---
SAFETY AIDE NOTE ON MY ROUNDS NOTED PT PULLED THE NGT OUT. NO S/S OF ASPIRATION NOTED. LINN RIVERA BURNER TECHNICIAN INFORMED AND RECEIVED NEW ORDER, ORDER NOTED AND CARRIED OUT.
[2022-05-29 06:57] LABS: BASOPHILS % (AUTO) 0.1 % (0.0-2.0); EOSINOPHILS % (AUTO) 0.6 % (0.0-6.0); HEMATOCRIT 39 % (33-45); HEMOGLOBIN 12.9 g/dL (11.5-14.8); LYMPHOCYTES # (AUTO) 0.6 K/uL (0.8-4.8); LYMPHOCYTES % (AUTO) 7.7 % (20.0-44.0); MEAN CORPUSCULAR HGB CONC 33 g/dl (31.0-36.0); MEAN CORPUSCULAR VOLUME 91 fL (82-100); MONOCYTES # (AUTO) 0.7 K/uL (0.1-1.30); NEUTROPHILS # (AUTO) 6.9 K/uL (1.8-8.9); NEUTROPHILS % (AUTO) 83.6 % (43.0-81.0); PLATELET COUNT (AUTO) 287 K/uL (150-450); WHITE BLOOD COUNT (AUTO) 8.2 K/uL (4.3-11.0)
--- NOTE | 2022-05-29 07:19 | NUR ---
RN OPENING NOTE PATIENT IN BED AWAKE. MUMBLES, ALERT AND ORIENTED X 0, NO DISTRESS OR DISCOMFORT NOTED. NO S/S OF PAIN NOTED. ON TELE SR HR 96. BILATERAL SOFT WRIST RESTRAINTS NOTED. NASOGASTRIC TUBE PULLED OUT. F/C INTACT AND PATENT DRAINING YELLOWISH COLOR URINE VIA GRAVITY. KEPT HOB ELEVATED. KEPT HER DRY AND CLEAN. REPOSITION HER FOR COMFORT AND SKIN MANAGEMENT. SIDE RAILS UP X 3 AND CALL LIGHT WITHIN REACH. WILL CONTINUE PLAN OF CARE AND ANTICIPATE NEEDS..
[2022-05-29 07:43] LABS: CALCIUM, SERUM 8.1 mg/dL (8.5-10.1); MAGNESIUM 2.2 mg/dL (1.8-2.4); PHOSPHORUS 2.9 mg/dL (2.5-4.9); POTASSIUM 3.5 mmol/L (3.5-5.1)
[2022-05-29 07:52] LABS: CREATININE 0.8 mg/dL (0.6-1.3)
[2022-05-29 08:00] VITALS: BP 112/65
[2022-05-29] MEDS: PANTOPRAZOLE 40 MG/PACK PACK NG SCH (08:08)
--- NOTE | 2022-05-29 08:08 | NUR ---
PANTOPRAZOLE NOT ADMINISTERED. PATIENT PULLED OUT NASOGASTRIC TUBE. PATIENT SCHEDULED FOR ULTRASOUND GUIDED PARACENTESIS LATER TODAY. WILL ATTEMPT NASOGASTRIC TUBE REINSERTION AFTER PROCEDURE.
[2022-05-29 12:00] VITALS: BP 127/72
--- NOTE | 2022-05-29 15:45 | NUR ---
NGT INSERTED. PLACEMENT CONFIRMED WITH STETHOSCOPE. WILL AWAIT CHEST X-RAY TO CONFIRM PLACEMENT
[2022-05-29 16:00] VITALS: BP 124/73
[2022-05-29] MEDS: CEFTRIAXONE 1 G in IV D5W 50 ML IV SCH (17:10)
[2022-05-29] MEDS: GLUCERNA 1.2 1,000 ML BOTTLE NG PRN (18:21)
--- NOTE | 2022-05-29 19:00 | NUR ---
RN CLOSING NOTE PATIENT IN BED AWAKE. MUMBLES, ALERT AND ORIENTED X 0, NO DISTRESS OR DISCOMFORT NOTED. NO S/S OF PAIN NOTED. ON TELE SR HR 96. BILATERAL SOFT WRIST RESTRAINTS NOTED. NASOGASTRIC TUBE IN PLACE, PLACEMENT CONFIRMED WITH CHEST X-RAY, NO RESIDUAL. NGT RUNNING GLUCERNA. F/C INTACT AND PATENT DRAINING YELLOWISH COLOR URINE VIA GRAVITY. KEPT HOB ELEVATED. KEPT HER DRY AND CLEAN. REPOSITION HER FOR COMFORT AND SKIN MANAGEMENT. SIDE RAILS UP X 3 AND CALL LIGHT WITHIN REACH. WILL ENDORSE TO NIGHTSHIFT RN FOR CONTINUATION OF CARE.
[2022-05-29 20:00] VITALS: BP 119/72
--- NOTE | 2022-05-29 20:00 | NUR ---
SYNTHETIC FILAMENT EXTRUDER NOTE PT IN BED AWAKE. A/O X 1, NO DISTRESS OR DISCOMFORT NOTED. NO S/S OF PAIN NOTED. ON TELE SR HR 81. NGT RT NARES FEEDING GLUCERNA AT 40 ML/HR, 0 ML RESIDUAL NOTED. F/C INTACT AND PATENT DRAINING YELLOWISH COLOR URINE VIA GRAVITY. KEPT HOB ELEVATED. BILATERAL SOFT WRIST RESTRAINTS ON. KEPT HER DRY AND CLEAN. REPOSITION HER FOR COMFORT AND SKIN MANAGEMENT. SIDE RAILS UP X 3 AND CALL LIGHT WITHIN REACH. VSS. CONTINUE TO MONITOR HER.
[2022-05-30] VITALS (7 sets, daily range): BP systolic 98–135; BP diastolic 47–72
[2022-05-30] MEDS: BLOOD SUGAR DIAGNOSTIC 1 EACH STRIP IN SCH ×3 (06:06→17:26)
[2022-05-30 06:46] LABS: BASOPHILS % (AUTO) 0.2 % (0.0-2.0); EOSINOPHILS % (AUTO) 0.3 % (0.0-6.0); HEMATOCRIT 40 % (33-45); HEMOGLOBIN 13.1 g/dL (11.5-14.8); LYMPHOCYTES # (AUTO) 0.6 K/uL (0.8-4.8); LYMPHOCYTES % (AUTO) 8.1 % (20.0-44.0); MEAN CORPUSCULAR HGB CONC 33 g/dl (31.0-36.0); MEAN CORPUSCULAR VOLUME 91 fL (82-100); MONOCYTES # (AUTO) 0.6 K/uL (0.1-1.30); MONOCYTES % (AUTO) 6.9 % (2.0-12.0); NEUTROPHILS # (AUTO) 6.7 K/uL (1.8-8.9); NEUTROPHILS % (AUTO) 84.5 % (43.0-81.0); PLATELET COUNT (AUTO) 319 K/uL (150-450); RED BLOOD CELL COUNT(AUTO) 4.38 MIL/uL (4.0-5.2); WHITE BLOOD COUNT (AUTO) 7.9 K/uL (4.3-11.0)
--- NOTE | 2022-05-30 07:22 | NUR ---
RN OPENING NOTE PATIENT IN BED AWAKE. MUMBLES, ALERT AND ORIENTED X 0, NO DISTRESS OR DISCOMFORT NOTED. NO S/S OF PAIN NOTED. ON TELE. BILATERAL SOFT WRIST RESTRAINTS NOTED TO BE RENEWED AT 0000. NASOGASTRIC TUBE IN PLACE.. F/C INTACT AND PATENT DRAINING YELLOWISH COLOR URINE VIA GRAVITY. HOB ELEVATED. SIDE RAILS UP X 3 AND CALL LIGHT WITHIN REACH, SAFETY MEASURES IN PLACE.
[2022-05-30 07:25] LABS: CALCIUM, SERUM 8.3 mg/dL (8.5-10.1); CREATININE 0.8 mg/dL (0.6-1.3); MAGNESIUM 2.1 mg/dL (1.8-2.4); PHOSPHORUS 2.9 mg/dL (2.5-4.9); POTASSIUM 3.9 mmol/L (3.5-5.1)
[2022-05-30] MEDS: PANTOPRAZOLE 40 MG/PACK PACK NG SCH (08:05)
[2022-05-30] MEDS: INSULIN REGULAR, HUMAN 100 UNIT/ML 3 ML VIAL SQ PRN ×2 (11:53→17:26)
--- NOTE | 2022-05-30 12:28 | NUR ---
RN NOTE RECEIVED LOW BL0OD PRESSURE READING RECHECKED BP 115/65 HR 85 VITAL SINGS UPDATED.
[2022-05-30] MEDS: MORPHINE SULFATE INJ 2 MG/ML DISP.SYRIN IV PRN (15:31)
[2022-05-30] MEDS: CEFTRIAXONE 1 G in IV D5W 50 ML IV SCH (16:58)
[2022-05-30] MEDS: GLUCERNA 1.2 1,000 ML BOTTLE NG PRN (17:27)
--- NOTE | 2022-05-30 18:45 | NUR ---
RN CLOSING NOTE PATIENT IN BED AWAKE. MUMBLES, ALERT AND ORIENTED X 0, NO DISTRESS OR DISCOMFORT NOTED. NO S/S OF PAIN NOTED. ON TELE SR . BILATERAL SOFT WRIST RESTRAINTS NOTED RENEWEAL DUE 0000. NO RESIDUAL. NGT RUNNING GLUCERNA. F/C INTACT AND PATENT DRAINING YELLOWISH COLOR URINE VIA GRAVITY. KEPT HOB ELEVATED. KEPT HER DRY AND CLEAN. REPOSITION HER FOR COMFORT AND SKIN MANAGEMENT. SIDE RAILS UP X 3 AND CALL LIGHT WITHIN REACH. WILL ENDORSE TO NIGHTSHIFT RN FOR CONTINUATION OF CARE.
[2022-05-31] VITALS: BP 96/64
[2022-05-31] MEDS: BLOOD SUGAR DIAGNOSTIC 1 EACH STRIP IN SCH ×4 (00:32→17:14)
[2022-05-31] MEDS: INSULIN REGULAR, HUMAN 100 UNIT/ML 3 ML VIAL SQ PRN ×4 (00:34→17:14)
[2022-05-31 04:00] VITALS: BP 114/54
--- NOTE | 2022-05-31 07:02 | NUR ---
RN CLOSING NOTE: ALERT TO SELF, MUMBLES, OPENS EYES AND TRACTS. ON 02 LMP NC. NO C/O PAIN. SINUS RHYTHM ON THE TELE MONITOR. JARAMILLO CATH DRAINING TO GRAVITY, BM X1. RIGHT NARE NGT RUNNING GLUCERNA AT 40ML/HR NO RESIDUAL. BILATERAL SOFT WRIST RESTRAINTS. CAP REFILL WNL. NO REDNESS NOTED. BLOOD GLUCOSE MONITORED COVERAGE PER SLIDING SCALE. PENDING THORACENTESIS CYTOLOGY. POSSIBLE HOSPICE EVAL.
[2022-05-31 07:25] LABS: BASOPHILS % (AUTO) 0.1 % (0.0-2.0); EOSINOPHILS % (AUTO) 0.3 % (0.0-6.0); HEMATOCRIT 42 % (33-45); HEMOGLOBIN 13.7 g/dL (11.5-14.8); LYMPHOCYTES # (AUTO) 0.7 K/uL (0.8-4.8); LYMPHOCYTES % (AUTO) 7.4 % (20.0-44.0); MEAN CORPUSCULAR HGB CONC 33 g/dl (31.0-36.0); MEAN CORPUSCULAR VOLUME 91 fL (82-100); MONOCYTES # (AUTO) 0.8 K/uL (0.1-1.30); MONOCYTES % (AUTO) 8.4 % (2.0-12.0); NEUTROPHILS # (AUTO) 8.1 K/uL (1.8-8.9); NEUTROPHILS % (AUTO) 83.8 % (43.0-81.0); PLATELET COUNT (AUTO) 295 K/uL (150-450); RED BLOOD CELL COUNT(AUTO) 4.62 MIL/uL (4.0-5.2); WHITE BLOOD COUNT (AUTO) 9.6 K/uL (4.3-11.0)
--- NOTE | 2022-05-31 07:25 | NUR ---
RN OPENING NOTE PATIENT IN BED AWAKE. MUMBLES, ALERT AND ORIENTED X 0, NO DISTRESS OR DISCOMFORT NOTED. NO S/S OF PAIN NOTED. ON TELE. BILATERAL SOFT WRIST RESTRAINTS NOTED TO BE RENEWED AT 0000. NASOGASTRIC TUBE IN PLACE. F/C INTACT AND PATENT DRAINING YELLOWISH COLOR URINE VIA GRAVITY. HOB ELEVATED. SIDE RAILS UP X 3 AND CALL LIGHT WITHIN REACH, SAFETY MEASURES IN PLACE.
[2022-05-31 07:55] LABS: CALCIUM, SERUM 8.1 mg/dL (8.5-10.1); CREATININE 0.9 mg/dL (0.6-1.3); MAGNESIUM 2.2 mg/dL (1.8-2.4); PHOSPHORUS 3.1 mg/dL (2.5-4.9)
[2022-05-31 08:00] VITALS: BP 116/58
[2022-05-31] MEDS: PANTOPRAZOLE 40 MG/PACK PACK NG SCH (08:02)
[2022-05-31 12:00] VITALS: BP 108/56
--- NOTE | 2022-05-31 13:00 | NUR ---
RN NOTE WILL HOLD 1500 ANTIBIOTICS DUE TO PATIENT UNDERGOING DIALYSIS. WILL GIVE ONCE HE IS DONE WITH HD.
[2022-05-31 16:00] VITALS: BP 100/61
[2022-05-31] MEDS: CEFTRIAXONE 1 G in IV D5W 50 ML IV SCH (17:14)
[2022-05-31] MEDS: GLUCERNA 1.2 1,000 ML BOTTLE NG PRN (17:16)
--- NOTE | 2022-05-31 19:45 | NUR ---
RN NOTE RECEIVED PT IN BED, AWAKE, WITH FAMILY AT BEDSIDE. PT ON O2 AT 2L VIA NC. NOT IN ANY DISTRESS. NGT PATENT AND IN PLACE, NOTED WITH 120ML RESIDUALS, HELD FEEDING. WILL RECHECK FOR RESIDUAL. KEPT HOB ELEVATED. COMPLAINED OF PAIN ON LEFT ABDOMEN WHEN TOUCHED. JARAMILLO DRAINING CLEAR YELLOW URINE. WILL CONTINUE TO MONITOR.
[2022-05-31 20:00] VITALS: BP 115/60
--- NOTE | 2022-05-31 22:30 | NUR ---
RN NOTE 0ML RESIDUAL, RESTARTED GT FEEDING. WILL CONTINUE TO MONITOR
[2022-06-01] VITALS: BP 111/66
[2022-06-01] MEDS: BLOOD SUGAR DIAGNOSTIC 1 EACH STRIP IN SCH ×5 (00:17→23:41)
[2022-06-01] MEDS: INSULIN REGULAR, HUMAN 100 UNIT/ML 3 ML VIAL SQ PRN ×5 (00:17→23:42)
[2022-06-01] MEDS: MORPHINE SULFATE INJ 2 MG/ML DISP.SYRIN IV PRN ×2 (01:24→14:22)
[2022-06-01 04:00] VITALS: BP 112/61
--- NOTE | 2022-06-01 07:05 | NUR ---
RN NOTE PT TOLERATING GT FEEDING AT 40ML/HR. WITH NO RESIDUALS. PT COMPLAINED OF PAIN ON LEFT ABDOMEN, RELIEVED BY MORPHINE. NOT IN ANY DISTRESS, TOLERATES O2 AT 2L. REMAIN ON RESTRAINTS WITH EPISODES OF PULLING OUT TUBINGS. GOOD CIRCULATION. REMAIN AFEBRILE. WILL ENDORSE TO NEXT SHIFTNURSE FOR MADYSON
--- NOTE | 2022-06-01 07:20 | NUR ---
RN NOTE RECEIVED PATIENT IN BED RESTING,CONFUSED,ALERT ORIENTEDX0 ON 2L OXYGEN VIA NASAL CANNULA O2:98% IV SITE IS ON LEFT UPPER ARM MIDLINE INTACT PATENT ON NGT FEEDING GLUCERNA 1.2 40CC/HR CHECKED PLACE IN PLACE NO RESIDUAL NOTED,JARAMILLO CATH IN PLACE URINE DRAINING YELLOW BY GRAVITY,SOFT BILATERAL WRIST RESTRAIN IN PLACE WILL CHECK EVERY 15 MINS FOR SKIN BREAKDOWN AND CIRCULATION, SAFETY MEASURE IMPLEMENT BED IN LOW POSITION AND LOCKED,HEAD OF THE BED ELEVATED CONTINUE TO MONITOR.
[2022-06-01 07:24] LABS: BASOPHILS % (AUTO) 0.2 % (0.0-2.0); EOSINOPHILS % (AUTO) 0.4 % (0.0-6.0); HEMATOCRIT 40 % (33-45); LYMPHOCYTES # (AUTO) 0.6 K/uL (0.8-4.8); LYMPHOCYTES % (AUTO) 7.6 % (20.0-44.0); MEAN CORPUSCULAR HGB CONC 32 g/dl (31.0-36.0); MEAN CORPUSCULAR VOLUME 91 fL (82-100); MONOCYTES # (AUTO) 0.7 K/uL (0.1-1.30); MONOCYTES % (AUTO) 8.8 % (2.0-12.0); NEUTROPHILS # (AUTO) 6.6 K/uL (1.8-8.9); PLATELET COUNT (AUTO) 294 K/uL (150-450); RED BLOOD CELL COUNT(AUTO) 4.42 MIL/uL (4.0-5.2)
[2022-06-01 08:00] VITALS: BP 116/67
[2022-06-01 08:05] LABS: CALCIUM, SERUM 8.2 mg/dL (8.5-10.1); CREATININE 0.8 mg/dL (0.6-1.3); MAGNESIUM 2.2 mg/dL (1.8-2.4); POTASSIUM 4.1 mmol/L (3.5-5.1)
[2022-06-01] MEDS: PANTOPRAZOLE 40 MG/PACK PACK NG SCH (08:53)
[2022-06-01 12:00] VITALS: BP 131/68
--- NOTE | 2022-06-01 14:22 | NUR ---
RN NOTE MORPHINE 1MG/O.5ML GIVEN FOR PAIN 05/17 CONTINUE TO MONITOR.
[2022-06-01 16:00] VITALS: BP 124/60
[2022-06-01] MEDS: CEFTRIAXONE 1 G in IV D5W 50 ML IV SCH (17:12)
--- NOTE | 2022-06-01 18:44 | NUR ---
RN NOTE PATIENT REMAINS CONFUSED ON 2L OXYGEN VIA NASAL CANNULA O2:98%,NO SOB NOT ACUTE DISTRESS NOTED PATIENT SLEEPING COMFORTABLY IV SITE IS ON LEFT UPPER ARM MIDLINE INTACT PATENT ALL DUE MEDS GIVEN MD ORDERED,SOFT BILATERAL WRIST RESTRAIN IN PLACE NGT IN PLACE JARAMILLO CATH IN PLACE ,ALL NEEDS MET, HEAD OF THE BED ELEVATED ALL THE TIME WILL ENDORSE NEXT COMING SHIFT FOR CONTINUATION OF CARE
[2022-06-01 20:00] VITALS: BP 199/59
--- NOTE | 2022-06-01 20:06 | NUR ---
RN NOTE PT ON O2 AT 2L VIA NC. NOT IN ANY DISTRESS. SINUS TACH ON TELE MONITOR WITH HR OF 102. NGT PATENT AND IN PLACE, AUSCULTATED.NO RESIDUALS NOTED ON FEEDING OF GLUCERNA AT 40ML/HR. KEPT HOB ELEVATED. BILATERAL WRIST RESTRAINTS ON, GOOD CIRCULATION. APPEARS TO BE COMFORTABLE. JARAMILLO DRAINING CLEAR YELLOW URINE. WILL CONTINUE TO MONITOR.
[2022-06-02] VITALS: BP_SYST 113; BP_SYST 117; BP_DIAS 67; BP_DIAS 70
[2022-06-02] MEDS: BLOOD SUGAR DIAGNOSTIC 1 EACH STRIP IN SCH ×3 (00:25→17:47)
--- NOTE | 2022-06-02 00:25 | NUR ---
RN NOTE REPORT GIVEN TO ABHINAV HUNG FOR MADYSON.
--- NOTE | 2022-06-02 00:50 | NUR ---
RN NOTE PT TRANSFERRED TO ROOM 310-1 PER ACLS PROTOCOL. CONTINUE ON O2 AT 2L. NO DISTRESS NOTED. FSBS 162, INSULIN COVERAGE GIVEN ORDERED. BED BATH DONE. SKIN INTACT. NO BELONGINGS.
--- NOTE | 2022-06-02 01:00 | NUR ---
ACCOUNTANT TAX OPENING NOTE RECEIVED PATIENT TRANSFERRED FROM [facility] ACCOMPANIED BY ABHINAV PERRY; PATIENT IS AWAKE, ALERT AND ORIENTED X1; MUMBLES AT TIMES. ON OXYGEN INHALATION @ 2LPM VIA NASAL CANNULA; TOLERATING WELL. RESPIRATION EVEN AND NONLABORED. IN NO ACUTE DISTRESS. NO S/SX OF PAIN NOTED. ON TELEMETRY MONITORING WITH CURRENT READING OF SINUS TACHYCARDIA HR-103 BPM. WITH BILATERAL SOFT WRIST RESTRAINTS IN PLACE; SKIN CHECKED DONE; WITH GOOD CIRCULATION; WNL. WITH NASOGASTRIC TUBE IN PLACE INFUSING WITH GLUCERNA 1.2 RUNNING @ 40 ML/HR; PATENT AND INTACT. WITH JARAMILLO CATHETER IN PLACE; PATENT AND INTACT WITH YELLOW URINE OUTPUT. SAFETY AND ASPIRATION PRECAUTIONS IMPLEMENTED: HEAD OF BED ELEVATED, CALL LIGHT AND TABLE WITHIN REACH, SIDE RAILS UP X3, BED IN LOWEST LOCKED POSITION. WILL CONTINUE TO MONITOR
[2022-06-02 04:00] VITALS: BP 127/59
[2022-06-02] MEDS: INSULIN REGULAR, HUMAN 100 UNIT/ML 3 ML VIAL SQ PRN ×2 (06:54→17:30)
[2022-06-02 07:06] LABS: BASOPHILS % (AUTO) 0.2 % (0.0-2.0); EOSINOPHILS % (AUTO) 0.2 % (0.0-6.0); HEMATOCRIT 41 % (33-45); HEMOGLOBIN 13.2 g/dL (11.5-14.8); LYMPHOCYTES # (AUTO) 0.6 K/uL (0.8-4.8); LYMPHOCYTES % (AUTO) 7.3 % (20.0-44.0); MEAN CORPUSCULAR HGB CONC 32 g/dl (31.0-36.0); MEAN CORPUSCULAR VOLUME 91 fL (82-100); MONOCYTES # (AUTO) 0.7 K/uL (0.1-1.30); MONOCYTES % (AUTO) 8.6 % (2.0-12.0); NEUTROPHILS # (AUTO) 7.3 K/uL (1.8-8.9); NEUTROPHILS % (AUTO) 83.7 % (43.0-81.0); PLATELET COUNT (AUTO) 286 K/uL (150-450); RED BLOOD CELL COUNT(AUTO) 4.51 MIL/uL (4.0-5.2); WHITE BLOOD COUNT (AUTO) 8.7 K/uL (4.3-11.0)
--- NOTE | 2022-06-02 07:10 | NUR ---
HEAD BANQUET WAITRESS CLOSING NOTE PATIENT IN BED; AWAKE, A/O X1; MUMBLES AT TIMES. ON O2 INHALATION @ 2LPM VIA NASAL CANNULA; TOLERATING WELL. RESPIRATION EVEN AND NONLABORED. IN NO ACUTE DISTRESS. NO S/SX OF PAIN NOTED. ON TELEMETRY MONITORING WITH CURRENT READING OF SINUS TACHYCARDIA HR-104 BPM. WITH BILATERAL SOFT WRIST RESTRAINTS IN PLACE. WITH NGT IN PLACE INFUSING WITH GLUCERNA 1.2 RUNNING @ 40 ML/HR; PATENT AND INTACT. WITH F/C IN PLACE; PATENT AND INTACT WITH YELLOW URINE OUTPUT. SAFETY AND ASPIRATION PRECAUTIONS IN PLACE: HEAD OF BED ELEVATED, CALL LIGHT AND TABLE WITHIN REACH, SIDE RAILS UP X3, BED IN LOWEST LOCKED POSITION. ENDORSED TO MORNING SHIFT FOR MADYSON.
[2022-06-02 07:30] LABS: CALCIUM, SERUM 8.3 mg/dL (8.5-10.1); CREATININE 0.9 mg/dL (0.6-1.3); MAGNESIUM 2.2 mg/dL (1.8-2.4); PHOSPHORUS 3.2 mg/dL (2.5-4.9); POTASSIUM 4.2 mmol/L (3.5-5.1)
[2022-06-02 08:00] VITALS: BP 115/68
[2022-06-02] MEDS: PANTOPRAZOLE 40 MG/PACK PACK NG SCH (08:56)
[2022-06-02 12:00] VITALS: BP 105/57
[2022-06-02 16:00] VITALS: BP 115/60
[2022-06-02] MEDS: CEFTRIAXONE 1 G in IV D5W 50 ML IV SCH (16:51)
--- NOTE | 2022-06-02 18:54 | NUR ---
RN CLOSING NOTES PATIENT IS STABLE IN BED. NO DISTRESS NOTED. NO COMPLAINTS AT THIS TIME. ALL NEEDS MET. SAFETY PRECAUTIONS IN PLACE. WILL ENDORSE TO THE RUBBER COMPOUNDER SUPERVISOR NURSE FOR MADYSON.
--- NOTE | 2022-06-02 19:18 | NUR ---
RN OPENING NOTE PATIENT IN BED; AWAKE, A/O X1; MUMBLES AT TIMES. ON O2 INHALATION @ 2LPM VIA NASAL CANNULA; TOLERATING WELL. RESPIRATION EVEN AND NONLABORED. IN NO ACUTE DISTRESS. NO S/SX OF PAIN NOTED. ON TELEMETRY MONITORING WITH CURRENT READING OF SINUS TACHYCARDIA HR-104 BPM. WITH BILATERAL SOFT WRIST RESTRAINTS IN PLACE. WITH NGT IN PLACE INFUSING WITH GLUCERNA 1.2 RUNNING @ 40 ML/HR; PATENT AND INTACT. WITH F/C IN PLACE; PATENT AND INTACT WITH YELLOW URINE OUTPUT. SAFETY AND ASPIRATION PRECAUTIONS IN PLACE: HEAD OF BED ELEVATED, CALL LIGHT AND TABLE WITHIN REACH, SIDE RAILS UP X3, BED IN LOWEST LOCKED POSITION.
--- NOTE | 2022-06-02 19:45 | NUR ---
RN NOTES PT SEEN BY DR MENON . DR MENON SPOKE WITH DAUGHTER REGARDING PLAN OF CARE. AL QUESTIONS ANSWERED. PER DAUGHTER SHE WILL COME BACK TOMORROW WITH A DECISION REGARDING PTS CARE AFTER TALKING WITH SIBLINGS.
[2022-06-02] MEDS: MORPHINE SULFATE INJ 2 MG/ML DISP.SYRIN IV PRN (19:59)
[2022-06-02 20:00] VITALS: BP 107/53
--- NOTE | 2022-06-02 20:24 | NUR ---
RN NOTES PRN MORPHINE GIVEN PER PTREQUEST. TOLERATED WELL.
[2022-06-03] VITALS: BP 135/76
[2022-06-03] MEDS: BLOOD SUGAR DIAGNOSTIC 1 EACH STRIP IN SCH ×5 (00:08→23:34)
[2022-06-03] MEDS: INSULIN REGULAR, HUMAN 100 UNIT/ML 3 ML VIAL SQ PRN ×5 (00:14→23:40)
[2022-06-03 04:00] VITALS: BP 136/75
[2022-06-03 06:35] LABS: BASOPHILS % (AUTO) 0.3 % (0.0-2.0); EOSINOPHILS % (AUTO) 0.5 % (0.0-6.0); HEMATOCRIT 39 % (33-45); LYMPHOCYTES # (AUTO) 0.6 K/uL (0.8-4.8); LYMPHOCYTES % (AUTO) 6.5 % (20.0-44.0); MEAN CORPUSCULAR HGB CONC 33 g/dl (31.0-36.0); MEAN CORPUSCULAR VOLUME 90 fL (82-100); MONOCYTES # (AUTO) 0.8 K/uL (0.1-1.30); MONOCYTES % (AUTO) 8.6 % (2.0-12.0); NEUTROPHILS % (AUTO) 84.1 % (43.0-81.0); PLATELET COUNT (AUTO) 284 K/uL (150-450); RED BLOOD CELL COUNT(AUTO) 4.35 MIL/uL (4.0-5.2); WHITE BLOOD COUNT (AUTO) 9.5 K/uL (4.3-11.0)
[2022-06-03 06:54] LABS: CALCIUM, SERUM 8.5 mg/dL (8.5-10.1); CREATININE 0.9 mg/dL (0.6-1.3); MAGNESIUM 2.4 mg/dL (1.8-2.4); PHOSPHORUS 3.2 mg/dL (2.5-4.9); POTASSIUM 5.4 mmol/L (3.5-5.1)
--- NOTE | 2022-06-03 06:56 | NUR ---
RN CLOSING NOTE PATIENT IN BED; AWAKE, A/O X2; MUMBLES AT TIMES. ON O2 INHALATION @ 2LPM VIA NASAL CANNULA; TOLERATING WELL. RESPIRATION EVEN AND NONLABORED. IN NO ACUTE DISTRESS. NO S/SX OF PAIN NOTED. ON TELEMETRY MONITORING WITH CURRENT READING OF SINUS TACHYCARDIA BPM. WITH BILATERAL SOFT WRIST RESTRAINTS IN PLACE. WITH NGT IN PLACE INFUSING WITH GLUCERNA 1.2 RUNNING @ 40 ML/HR; PATENT AND INTACT. WITH F/C IN PLACE; PATENT AND INTACT WITH YELLOW URINE OUTPUT. SAFETY AND ASPIRATION PRECAUTIONS IN PLACE: HEAD OF BED ELEVATED, CALL LIGHT AND TABLE WITHIN REACH, SIDE RAILS UP X3, BED IN LOWEST LOCKED POSITION. REPOSITIONED Q2HRS AND PRN NEEDED. CIRCULATION CHECK AND RANGE OF MOTION EXERCISES PROVIDED.
--- NOTE | 2022-06-03 07:30 | NUR ---
AIRCRAFT LIFE SUPPORT FITTER OPENING NOTES PATIENT IN BED; AWAKE, A/O X1; MUMBLES AT TIMES. ON O2 INHALATION @ 2LPM VIA NC ; TOLERATING WELL. NO SOB OR ACUTE DISTRESS NOTED . NO S/SX OF PAIN NOTED. ON TELEMETRY MONITORING WITH CURRENT READING OF SINUS TACHYCARDIA HR-103 BPM. WITH BILATERAL SOFT WRIST RESTRAINTS IN PLACE. WITH NGT IN PLACE INFUSING WITH GLUCERNA 1.2 RUNNING @ 40 ML/HR; PATENT AND INTACT. WITH F/C IN PLACE; PATENT AND INTACT WITH YELLOW URINE OUTPUT. SAFETY AND ASPIRATION PRECAUTIONS IN PLACE: HEAD OF BED ELEVATED, CALL LIGHT AND TABLE WITHIN REACH, SIDE RAILS UP X3, BED IN LOWEST LOCKED POSITION. WILL CONTINUE TO MONITOR
[2022-06-03 08:00] VITALS: BP 117/79
[2022-06-03] MEDS: PANTOPRAZOLE 40 MG/PACK PACK NG SCH (10:39)
--- NOTE | 2022-06-03 11:27 | NUR ---
Radiologist, Dr. Nice was not available today, he asked for procedure to be done tomorrow morning. Left a note for Sunday tech
--- NOTE | 2022-06-03 13:31 | NUR ---
SUPERVISOR DIAGNOSTIC NOTE SPOKE WITH [facility], SHE SAID THAT RADIOLOGIST VISHAL WILL NOT BE ABLE TO DO PARACENTESIS TODAY BUT WILL INSTEAD DO IT TOMORROW MORNING BETWEEN 8 TO 9 AM. WILL ENDORSE ACCORDINGLY
[2022-06-03 16:00] VITALS: BP 115/69
[2022-06-03] MEDS: CEFTRIAXONE 1 G in IV D5W 50 ML IV SCH (16:56)
--- NOTE | 2022-06-03 18:46 | NUR ---
TEXTILE SCREEN MAKER CLOSING NOTES PATIENT IN BED; AWAKE, A/O X1; . ON O2 INHALATION @ 2LPM VIA NC ; TOLERATING WELL. NO SOB OR ACUTE DISTRESS NOTED . ALL DUE MEDS GIVEN , NO S/SX OF PAIN NOTED. ON TELEMETRY MONITORING WITH CURRENT READING OF SINUS TACHYCARDIA HR-106 BPM. WITH BILATERAL SOFT WRIST RESTRAINTS IN PLACE. WITH NGT IN PLACE INFUSING WITH GLUCERNA 1.2 RUNNING @ 40 ML/HR . WITH F/C IN PLACE; WITH YELLOW URINE OUTPUT. SAFETY AND ASPIRATION PRECAUTIONS IN PLACE: HEAD OF BED ELEVATED, CALL LIGHT AND TABLE WITHIN REACH, SIDE RAILS UP X3, BED IN LOWEST LOCKED POSITION. PARACENTHESIS SCHEDULE FOR TOMORROW 06/04 ENDORSED TO NEXT SHIFT
--- NOTE | 2022-06-03 20:23 | NUR ---
SALES SUPPORT ASSOCIATE OPENING NOTES PATIENT IN BED; AWAKE, A/O X1.ON O2 INHALATION @ 2LPM VIA NC ; TOLERATING WELL. NO SOB OR ACUTE DISTRESS NOTED. NO S/SX OF PAIN NOTED. ON TELEMETRY MONITORING WITH CURRENT READING OF SINUS TACHYCARDIA HR-106 BPM. WITH BILATERAL SOFT WRIST RESTRAINTS IN PLACE. WITH NGT IN PLACE INFUSING WITH GLUCERNA 1.2 RUNNING @ 40 ML/HR WITH F/C IN PLACE; WITH YELLOW URINE OUTPUT. SAFETY AND ASPIRATION PRECAUTIONS IN PLACE: HEAD OF BED ELEVATED, CALL LIGHT AND TABLE WITHIN REACH, SIDE RAILS UP X3, BED IN LOWEST LOCKED POSITION.
[2022-06-04] VITALS: BP 122/69
[2022-06-04 03:42] VITALS: BP 113/59
[2022-06-04] MEDS: BLOOD SUGAR DIAGNOSTIC 1 EACH STRIP IN SCH ×3 (06:11→17:32)
[2022-06-04] MEDS: INSULIN REGULAR, HUMAN 100 UNIT/ML 3 ML VIAL SQ PRN ×3 (06:12→18:12)
[2022-06-04 06:45] LABS: BASOPHILS % (AUTO) 0.4 % (0.0-2.0); EOSINOPHILS % (AUTO) 0.7 % (0.0-6.0); HEMATOCRIT 40 % (33-45); HEMOGLOBIN 12.9 g/dL (11.5-14.8); LYMPHOCYTES # (AUTO) 0.7 K/uL (0.8-4.8); MEAN CORPUSCULAR HGB CONC 32 g/dl (31.0-36.0); MEAN CORPUSCULAR VOLUME 91 fL (82-100); MONOCYTES # (AUTO) 0.7 K/uL (0.1-1.30); MONOCYTES % (AUTO) 8.1 % (2.0-12.0); NEUTROPHILS # (AUTO) 6.9 K/uL (1.8-8.9); NEUTROPHILS % (AUTO) 82.8 % (43.0-81.0); PLATELET COUNT (AUTO) 300 K/uL (150-450); RED BLOOD CELL COUNT(AUTO) 4.39 MIL/uL (4.0-5.2); WHITE BLOOD COUNT (AUTO) 8.3 K/uL (4.3-11.0)
--- NOTE | 2022-06-04 06:49 | NUR ---
FRONT OFFICE REPRESENTATIVE CLOSING NOTES PATIENT IN BED; AWAKE, A/O X1-2 .ON O2 INHALATION @ 2LPM VIA NC ; TOLERATING WELL. NO SOB OR ACUTE DISTRESS NOTED. NO S/SX OF PAIN NOTED. ON TELEMETRY MONITORING WITH CURRENT READING OF SR HR-99 BPM. WITH BILATERAL SOFT WRIST RESTRAINTS IN PLACE. WITH NGT IN PLACE INFUSING WITH GLUCERNA 1.2 RUNNING @ 40 ML/HR WITH F/C IN PLACE; WITH YELLOW URINE OUTPUT. SAFETY AND ASPIRATION PRECAUTIONS IN PLACE: HEAD OF BED ELEVATED, CALL LIGHT AND TABLE WITHIN REACH, SIDE RAILS UP X3, BED IN LOWEST LOCKED POSITION. WILL ENDORSE TO DAY SHIFT NURSE FOR CONTINUITY OF CARE.
[2022-06-04 07:10] LABS: CALCIUM, SERUM 8.2 mg/dL (8.5-10.1); CREATININE 0.8 mg/dL (0.6-1.3); MAGNESIUM 2.4 mg/dL (1.8-2.4); PHOSPHORUS 3.3 mg/dL (2.5-4.9); POTASSIUM 4.9 mmol/L (3.5-5.1)
--- NOTE | 2022-06-04 07:28 | NUR ---
RING MAKING MACHINE OPERATOR OPENING NOTES RECEIVED PATIENT IN BED; AWAKE, A/O X1.ON O2 INHALATION @ 2LPM VIA NC ; TOLERATING WELL. NO SOB OR ACUTE DISTRESS NOTED AT THE MOMENT. NO S/SX OF PAIN NOTED. ON TELEMETRY MONITORING WITH CURRENT READING OF SR, HR-98 BPM. NOTED BILATERAL SOFT WRIST RESTRAINTS IN PLACE. WITH NGT IN PLACE INFUSING WITH GLUCERNA 1.2 RUNNING @ 40 ML/HR WITH F/C IN PLACE; WITH YELLOW URINE OUTPUT. SAFETY AND ASPIRATION PRECAUTIONS IN PLACE: HEAD OF BED ELEVATED, CALL LIGHT AND TABLE WITHIN REACH, SIDE RAILS UP X3, BED IN LOWEST LOCKED POSITION, WILL CONT TO MONITOR.
[2022-06-04] MEDS: PANTOPRAZOLE 40 MG/PACK PACK NG SCH (09:22)
[2022-06-04] MEDS: MORPHINE SULFATE INJ 2 MG/ML DISP.SYRIN IV PRN (14:52)
[2022-06-04] MEDS: GLUCERNA 1.2 1,000 ML BOTTLE NG PRN (16:40)
[2022-06-04] MEDS: CEFTRIAXONE 1 G in IV D5W 50 ML IV SCH (17:40)
--- NOTE | 2022-06-04 19:45 | NUR ---
DEICER REPAIRER PNEUMATIC OPENING NOTES RECEIVED PATIENT IN BED; AWAKE, ALERT AND ORIENTED X1-2. ON OXYGEN INHALATION @ 2LPM VIA NASAL CANNULA; WELL TOLERATED. IN NO ACUTE DISTRESS. NO S/SX OF PAIN OR DISCOMFORT NOTED. ON TELE MONITORING WITH READING OF SINUS RHYTHM HR-95 BPM. WITH BILATERAL SOFT WRIST RESTRAINTS IN PLACE; SKIN AND CIRCULATION; WNL. WITH NG TUBE ON RIGHT NARE IN PLACE INFUSING WITH GLUCERNA 1.2 RUNNING @ 40 ML/HR; CLOGGED. WITH JARAMILLO CATHETER IN PLACE; DRAINING WITH YELLOW URINE OUTPUT. ASPIRATION AND SAFETY MEASURES IMPLEMENTED: HEAD OF BED ELEVATED, CALL LIGHT AND TABLE WITHIN REACH, SIDE RAILS UP X3, BED IN LOWEST LOCKED POSITION. WILL CONTINUE PLAN OF CARE.
[2022-06-04 20:00] VITALS: BP 145/99
--- NOTE | 2022-06-04 20:51 | NUR ---
RIG SUPERVISOR CLOSING NOTES PATIENT IN BED; AWAKE, A/O X1.ON O2 INHALATION @ 2LPM VIA NC ; TOLERATING WELL. NO SOB OR ACUTE DISTRESS NOTED AT THE MOMENT. NO S/SX OF PAIN NOTED. ON TELEMETRY MONITORING WITH CURRENT READING OF SR, HR-98 BPM. NOTED BILATERAL SOFT WRIST RESTRAINTS IN PLACE. WITH NGT IN PLACE INFUSING WITH GLUCERNA 1.2 RUNNING @ 40 ML/HR WITH FC IN PLACE, DRAINED 400CC OF YELLOW URINE THROUGHOUT AM SHIFT. SAFETY AND ASPIRATION PRECAUTIONS IN PLACE: HEAD OF BED ELEVATED, CALL LIGHT AND TABLE WITHIN REACH, SIDE RAILS UP X3, BED IN LOWEST LOCKED POSITION, ENDORSED TO PM SHIFT.
[2022-06-05] VITALS (7 sets, daily range): BP systolic 108–123; BP diastolic 47–69
--- NOTE | 2022-06-05 00:53 | NUR ---
RN NOTES BLOOD SUGAR CHECKED - 108 MG/DL; NO INSULIN COVERAGE GIVEN.
[2022-06-05] MEDS: BLOOD SUGAR DIAGNOSTIC 1 EACH STRIP IN SCH ×5 (00:58→23:13)
--- NOTE | 2022-06-05 01:15 | NUR ---
RN NOTES NGT CLOGGED. REINSERTION DONE ON RIGHT NARE BY ABHINAV LIANG; PLACEMENT OF TUBE DONE AND CONFIRMED THROUGH ASPIRATION, AUSCULTATION AND CHEST XRAY. PT KEPT COMFORTABLE IN BED. WILL CONTINUE TO MONITOR
[2022-06-05] MEDS: INSULIN REGULAR, HUMAN 100 UNIT/ML 3 ML VIAL SQ PRN ×2 (06:20→12:36)
--- NOTE | 2022-06-05 06:20 | NUR ---
RN NOTES BLOOD SUGAR CHECKED - 141 MG/DL; 2 UNITS INSULIN GIVEN SQ PER SLIDING SCALE.
--- NOTE | 2022-06-05 06:53 | NUR ---
AIR TRAFFIC CONTROL MANAGER CLOSING NOTES PATIENT IN BED; AWAKE, A/O X1-2. O2 INHALATION @ 2LPM VIA NC; WELL TOLERATED. ON TELE MONITORING WITH READING OF SR HR-95 BPM. NOT IN ANY FORM OF RESPIRATORY DISTRESS. NO S/SX OF PAIN OR DISCOMFORT NOTED. WITH BILATERAL SOFT WRIST RESTRAINTS IN PLACE; SKIN AND CIRCULATION; WNL. WITH NG TUBE ON RIGHT NARE IN PLACE INFUSING WITH GLUCERNA 1.2 RUNNING @ 40 ML/HR; FLUSHES WELL. NO RESIDUAL ASPIRATED. WITH JARAMILLO CATHETER IN PLACE; DRAINING WITH YELLOW URINE OUTPUT. ASPIRATION AND SAFETY MEASURES IN PLACE: HOB ELEVATED, CALL LIGHT AND TABLE WITHIN REACH, SIDE RAILS UP X3, BED IN LOWEST LOCKED POSITION. ENDORSED TO MORNING SHIFT FOR MADYSON.
[2022-06-05 07:04] LABS: CALCIUM, SERUM 8.1 mg/dL (8.5-10.1); CREATININE 0.8 mg/dL (0.6-1.3); MAGNESIUM 2.5 mg/dL (1.8-2.4); POTASSIUM 4.7 mmol/L (3.5-5.1)
[2022-06-05 07:08] LABS: BASOPHILS % (AUTO) 0.1 % (0.0-2.0); EOSINOPHILS % (AUTO) 0.7 % (0.0-6.0); HEMATOCRIT 39 % (33-45); LYMPHOCYTES # (AUTO) 0.6 K/uL (0.8-4.8); LYMPHOCYTES % (AUTO) 7.5 % (20.0-44.0); MEAN CORPUSCULAR HGB CONC 34 g/dl (31.0-36.0); MEAN CORPUSCULAR VOLUME 91 fL (82-100); MONOCYTES # (AUTO) 0.6 K/uL (0.1-1.30); MONOCYTES % (AUTO) 6.9 % (2.0-12.0); NEUTROPHILS # (AUTO) 7.2 K/uL (1.8-8.9); NEUTROPHILS % (AUTO) 84.8 % (43.0-81.0); PLATELET COUNT (AUTO) 286 K/uL (150-450); RED BLOOD CELL COUNT(AUTO) 4.29 MIL/uL (4.0-5.2); WHITE BLOOD COUNT (AUTO) 8.5 K/uL (4.3-11.0)
--- NOTE | 2022-06-05 07:30 | NUR ---
RACKING MACHINE OPERATOR OPENING NOTE PATIENT RECEIVED IN BED AWAKE, A/O X2. NG TUBE INTACT AND PATENT. MIDLINE TO ALIDA REMAINS PATENT WITH NO S/SX OF INFILTRATION. JARAMILLO CATHETER IN PLACE AND DRAINING CLEAR, YELLOW URINE. NO S/SX OF DISTRESS OR PAIN OBSERVED OR REPORTED. SOFT WRIST RESTRAINTS REMAIN INTACT FOR SAFETY PATIENT CONTINUES TO TRY AND PULL OUT NG TUBE. PATIENT CURRENTLY WAITING FOR GI CONSULT FOR POSSIBLE PEG TUBE PLACEMENT. WILL FOLLOW UP. SAFETY MEASURES IN PLACE WITH BED IN LOWEST POSITION AND LOCKED. SIDERAIL UP X3, CALLLIGHT WITHIN REACH. WILL CONTINUE TO MONITOR.
[2022-06-05] MEDS: PANTOPRAZOLE 40 MG/PACK PACK NG SCH (09:00)
[2022-06-05] MEDS: MORPHINE SULFATE INJ 2 MG/ML DISP.SYRIN IV PRN (14:34)
[2022-06-05] MEDS: CEFTRIAXONE 1 G in IV D5W 50 ML IV SCH (16:46)
--- NOTE | 2022-06-05 17:59 | NUR ---
KITCHEN BATH DESIGNER CLOSING NOTE PATIENT REMAINED A/O X1-2 ON SHIFT. NG TUBE DISLODGED AND PULLED OUT PATIENT WAS ABLE TO FREE HERSELF FROM WRIST RESTRAINT. OF NOW, NG TUBE NOT REPLACED; MD AWARE. WRIST RESTRAINTS SECURED BACK IN PLACE. MIDLINE IV ACCESS TO RIGHT UPPER ARM REMAINS PATENT AND INTACT. MORPHINE GIVEN @ 1440 PATIENT WAS OBSERVED TO BE MOANING AND RESTLESS. MEDICATION EFFECTIVE. BLOOD SUGAR @ 1200 WAS 162. PATIENT GIVEN 3 UNITS. BLOOD SUGAR @ 1700 WAS 74. NO UNITS GIVEN. SAFETY MEASURES IN PLACE WITH BED LOW AND LOCKED. SIDERAIL UP. CALL LIGHT WITHIN REACH. WILL CONTINUE TO MONITOR.
--- NOTE | 2022-06-05 19:30 | NUR ---
SHIPYARD HELPER OPENING NOTES PATIENT RECEIVED RESTING IN BED COMFORTABLY; A/OX1-2, BREATHING EVEN AND UNLABORED; NO SOB NOTED; TOLERATING 2LPM VIA NASAL CANNULA WELL; TELE MONITOR READS NORMAL SINUS RHYTHM; ALIDA MIDLINE INTACT AND PATENT, FLUSHING WELL; NO S/S OF REDNESS OR INFILTRATION NOTED; PER AM SHIFT, PATIENT PULLED OUT NGTUBE AND NO ORDERS FOR RE-INSERTION PLACEDP; CHARGE NURSES AWARE; SAFETY PRECAUTIONS IMPLEMENTED; BED LOCKED IN LOW POSITION; SIDE RAILSX2; CALL LIGHT WITHIN REACH; WILL CONT PLAN OF CARE
--- NOTE | 2022-06-05 20:16 | NUR ---
HIGH REACH OPERATOR NOTE PER AM SHIFT, NGTUBE REMOVED 2X BY PATIENT EVEN ON BILATERAL WRIST RESTRAINTS; MD AND CHARGE NURSES ARE AWARE; PER AM SHIFT NO RE-INSERTION; ACCU CHECK 74, PER PAYAM IGLESIAS NP OK TO START D5NS @ 75ML/HR FOR IV HYDRATION; ORDERS RECEIVED AND CARRIED OUT
[2022-06-05] MEDS: IV D5/ 0.9% NACL 1,000 ML IV PRN (20:33)
[2022-06-06] VITALS (7 sets, daily range): BP systolic 109–124; BP diastolic 45–69
--- NOTE | 2022-06-06 01:15 | NUR ---
CLAIMS MANAGER NOTES ALIDA MIDLINE INFILTRATED, CHARGE NURSE AWARE; EXTREMITY ELEVATED AND OFFLOADED; IV REMOVED, IV TIP INTACT; L WRIST #22G ESTABLISHED; WILL INFORM DAY SHIFT FOR MIDLINE RE-INSERTION;
[2022-06-06] MEDS: BLOOD SUGAR DIAGNOSTIC 1 EACH STRIP IN SCH ×4 (05:01→23:55)
[2022-06-06 06:14] LABS: BASOPHILS % (AUTO) 0.1 % (0.0-2.0); EOSINOPHILS % (AUTO) 0.4 % (0.0-6.0); HEMATOCRIT 39 % (33-45); HEMOGLOBIN 12.8 g/dL (11.5-14.8); LYMPHOCYTES # (AUTO) 0.6 K/uL (0.8-4.8); MEAN CORPUSCULAR HGB CONC 33 g/dl (31.0-36.0); MEAN CORPUSCULAR VOLUME 92 fL (82-100); MONOCYTES # (AUTO) 0.6 K/uL (0.1-1.30); MONOCYTES % (AUTO) 6.7 % (2.0-12.0); NEUTROPHILS # (AUTO) 7.5 K/uL (1.8-8.9); NEUTROPHILS % (AUTO) 85.8 % (43.0-81.0); PLATELET COUNT (AUTO) 286 K/uL (150-450); RED BLOOD CELL COUNT(AUTO) 4.27 MIL/uL (4.0-5.2); WHITE BLOOD COUNT (AUTO) 8.7 K/uL (4.3-11.0)
--- NOTE | 2022-06-06 06:47 | NUR ---
MINIATURE SET BUILDER CLOSING NOTES PATIENT RESTING IN BED COMFORTABLY; A/OX1-2, BREATHING EVEN AND UNLABORED; NO SOB NOTED; TOLERATING 2LPM VIA NASAL CANNULA WELL; TELE MONITOR READS NORMAL SINUS RHYTHM 77BPM; R WRIST #22G, FLUSHING WELL; TOLERATING IVF WELL; NO S/S OF REDNESS OR INFILTRATION NOTED; WILL REMIND FOR MIDLINE RE-INSERTION; ALL NEEDS RENDERED; SAFETY PRECAUTIONS IMPLEMENTED; BED LOCKED IN LOW POSITION; SIDE RAILSX2; CALL LIGHT WITHIN REACH; WILL ENDORSE MADYSON TO ONCOMING SHIFT
[2022-06-06 07:00] LABS: CREATININE 0.8 mg/dL (0.6-1.3); MAGNESIUM 2.5 mg/dL (1.8-2.4); POTASSIUM 4.6 mmol/L (3.5-5.1)
--- NOTE | 2022-06-06 07:30 | NUR ---
COTTON CLEANER OPENING NOTES: RECEIVED PATIENT IN BED AWAKE, ALERT AND ORIENTED X 1. NO SOB OR CARDIAC DISTRESS NOTED, ON O2 INHALATION @ 2LPM VIA NC. ON BILLET WORKER WITH CURRENT READING OF NSR @74BPPM. NOTED WITH JARAMILLO CATHETER NOTED WITH DARK YELLOW COLORED URINE DRAINING VIA GRAVITY. IV ACCESS ON RIGHT WRIST GAUGE 22, INFUSING D5 NS @75ML/HR PATENT AND INTACT. SAFETY MEASURES MAINTAINED: BED IN LOWEST AND LOCKED POSITION. SIDE RAILS UP X2. WILL MONITOR PATIENT ACCORDINGLY.
[2022-06-06] MEDS: PANTOPRAZOLE 40 MG VIAL IV SCH (08:31)
[2022-06-06] MEDS: INSULIN REGULAR, HUMAN 100 UNIT/ML 3 ML VIAL SQ PRN ×2 (11:54→17:04)
--- NOTE | 2022-06-06 14:32 | NUR ---
RN NOTES: CALLED MS CAIN (LANDFILL GRADER), GAVE UPDATE ABOUT DC PLANS FOR PATIENT. UPDATE: DC WILL BE TOMORROW AM.
[2022-06-06] MEDS: IV D5/ 0.9% NACL 1,000 ML IV PRN (16:48)
--- NOTE | 2022-06-06 18:44 | NUR ---
IRRIGATOR VALVE PIPE CLOSING NOTES: PATIENT IN BED, ASLEEP EASILY AROUSED WITH STIMULI, A/O X 1 WITH CONFUSION AND FORGETFULNESS. NO SOB OR CARDIAC DISTRESS NOTED, AFEBRILE. ON O2 INHALATION @ 2LPM VIA NC AND SATURATING WELL ON 96%. ON HEALTHCARE NETWORK CONSULTANT WITH CURRENT READING OF SINUS RHYTHM @ 90 BPM. IV ACCESS ON R WRIST WITH D5 NS 1L X 75CC/HR PATENT, INTACT AND INFUSING WELL. JARAMILLO CATHETER DRAINING DARK YELLOW COLORED URINE VIA GRAVITY. NOTED WITH ASCITES.PATIENT HAD ON AND OFF SOFT RESTRAINT ON LEFT HAND.ABLE TO MOVE LEFT HAND FREELY, WITH GOOD BLOOD FLOW NOTED. SAFETY PRECAUTIONS MAINTAINED: BED LOCKED AND IN LOWEST POSITION, SIDE RAILS UP X 2. CALL LIGHT IN EASY REACH FOR HELP. ENDORSED TO DIGITAL FORENSIC ANALYST FOR MADYSON.
--- NOTE | 2022-06-06 19:44 | NUR ---
OUTPLACEMENT CONSULTANT OPENING NOTES PATIENT RECEIVED RESTING IN BED COMFORTABLY; A/OX1-2, BREATHING EVEN AND UNLABORED; NO SOB NOTED; TOLERATING 2LPM VIA NASAL CANNULA WELL; TELE MONITOR READS NORMAL SINUS RHYTHM; R [id number]; NO S/S OF REDNESS OR INFILTRATION NOTED; PER AM SHIFT, UNABLE TO RE-INSERT NGTUBE; PATIENT WILL BE D/C IN AM TOMORROW; UNKNOWN PREASSEMBLER AND INSPECTOR TIME; CHARGE NURSES AWARE; SAFETY PRECAUTIONS IMPLEMENTED; BED LOCKED IN LOW POSITION; SIDE RAILSX2; CALL LIGHT WITHIN REACH; WILL CONT PLAN OF CARE
[2022-06-07] VITALS: BP 115/52
[2022-06-07 00:12] VITALS: BP 136/68
[2022-06-07] MEDS: BLOOD SUGAR DIAGNOSTIC 1 EACH STRIP IN SCH ×3 (06:33→17:36)
--- NOTE | 2022-06-07 06:49 | NUR ---
BOARDING KENNEL OR CATTERY OPERATOR NOTES PATIENT REMOVED TELE MONITOR AND IV SITE; IV TIP INTACT; CHARGE NURSE AWARE; WILL ATTEMPT TO RE-ESTABLISH IV ACCESS; DAY SHIFT AWARE
--- NOTE | 2022-06-07 07:00 | NUR ---
TELE CLOSING RN NOTES PATIENT IN BED, RESTING COMFORTABLY; A/OX1, CONFUSED; BREATHING EVEN AND UNLABORED; NO SOB NOTED; TOLERATING 2LPM VIA NASAL CANNULA; TELE MONITOR READS SINUS RHYTHM; BILATERAL SOFT WRIST RESTRAINTS INTACT; L UA #22G ESTABLISH; FLUSHING WELL; TOLERATING IVF WELL; JARAMILLO CATH IN PLACE WITH YELLOW OUTPUT NOTED; ALL NEEDS RENDERED; WILL BE D/C TODAY; WILL INFORM DAY SHIFT; SAFETY PRECAUTIONS IMPLEMENTED; BED LOCKED IN LOW POSITION; SIDE RAILSX2, CALL LIGHT WITHIN REACH; WILL ENDORSE MADYSON TO ONCOMING SHIFT
--- NOTE | 2022-06-07 07:30 | NUR ---
BOOK REPAIRER NOTES PT IN BED, AWAKE, NO SIGN OF PAIN OR DISTRESS, RESPIRATIONS REGULAR AND NOT LABORED, IV FLUIDS INFUSING WELL, JARAMILLO IN PLACE, DRAINING WELL, KEPT COMFORTABLE IN BED.
--- NOTE | 2022-06-07 07:52 | NUR ---
PATIENT ON 2 L NC STABLE W/O DISTRESS NOTED. Addendum: 06/07/22 at 0753 by ANNETTE TORRES RT Amended: Links added.
[2022-06-07 08:00] VITALS: BP 113/67
[2022-06-07] MEDS: PANTOPRAZOLE 40 MG VIAL IV SCH (09:30)
[2022-06-07 12:00] VITALS: BP 105/63
[2022-06-07] MEDS: MORPHINE SULFATE INJ 2 MG/ML DISP.SYRIN IV PRN (13:26)
[2022-06-07 16:00] VITALS: BP 105/58
[2022-06-07] MEDS: IV D5/ 0.9% NACL 1,000 ML IV PRN (17:32)
--- NOTE | 2022-06-07 18:39 | NUR ---
BINMAN CLOSING NOTES: PATIENT RESTING IN BED, A/O X 1 WITH CONFUSION AND FORGETFULNESS. NO SOB OR CARDIAC DISTRESS NOTED. ON O2 @ 2LPM VIA NC. ON TEAR DOWN MATCHER WITH CURRENT READING OF SINUS RHYTHM @ 90 BPM. IV ACCESS ON LEFT UPPER ARM G22 WITH D5 NS AT 75CC/HR PATENT, INTACT AND INFUSING WELL. JARAMILLO CATHETER DRAINING DARK YELLOW COLORED URINE. PT HAS ASCITES. PATIENT ON SOFT WRIST RESTRAINT. ALL PM MEDS ADMINISTERED, AND ALL CARE PROVIDED. WILL ENDORSE PT'S CARE TO ONCOMING NURSE.
[2022-06-07 20:00] VITALS: BP 113/72
[2022-06-08] VITALS: BP 115/52
[2022-06-08] MEDS: BLOOD SUGAR DIAGNOSTIC 1 EACH STRIP IN SCH ×2 (00:22→05:54)
[2022-06-08] MEDS: INSULIN REGULAR, HUMAN 100 UNIT/ML 3 ML VIAL SQ PRN (00:25)
--- NOTE | 2022-06-08 03:34 | NUR ---
confused will smile and look at the nurse took off the restraints when i am in the room needs to be watched when the restraints are off D/T she will take off the hospital monitor and go for the IV left upper arm She is NPO as ordered anahi HORN cloudy She is to be transfered to [facility] in the AM 06/08/2022
[2022-06-08 04:00] VITALS: BP 120/58
[2022-06-08] MEDS: IV D5/ 0.9% NACL 1,000 ML IV PRN (05:27)
[2022-06-08 08:00] VITALS: BP 113/45
--- NOTE | 2022-06-08 08:06 | NUR ---
RN OPENING NOTE PATIENT RECEIVED IN BED, AO X 1, ABLE TO RESPONDS ALL STIMULI. IN NO ACUTE DISTRESS NOTED. RESPIRATORY EVEN AND UNLABORED ON ROOM AIR. SKIN IS WARM TO TOUCH, KEEP CLEAN/DRY. PATIENT CONTINUE TO NPO STATUS AND SOFT WRIST RESTRAINTS IS ON FOR PATIENT SAFETY. KEPT ELEVATED HOB FOR ENSURE AIRWAY AND ASPIRATION PRECAUTION, ALSO LOWEST POSITION OF THE BED, S/R UP X 2, BED ALARM IS ON AT ALL THE TIMES. ALL SAFETY PRECAUTION APPLIED. CALL LIGHT WITHIN REACH, WILL CONTINUE TO MONITOR.
[2022-06-08] MEDS: PANTOPRAZOLE 40 MG VIAL IV SCH (08:53)
--- NOTE | 2022-06-08 10:30 | NUR ---
2 weights and measures inspector PICKED UP PATIENT TO THE [facility] AND PATIENT GOING A HOSPICE CARE, AND GIVEN REPORT TO HOSPICE. ALL TUBES ARE REMOVED BEFORE PATIENT LEAVES FACILITY. WOUND PICTURE HAS BEEN TAKEN SINCE YESTERDAY.
== END 2022-06-08 10:45 | DRG 640 ==
LOC: ER 10:19 → MEDSG1 15:03 → TELE1 21:58 → TELE 06-02 00:36
PROVIDERS: ADMIT Nurse Practitioner Acute Care
PROC: 05HC33Z Insertion of Infusion Device into Left Basilic Vein, Percutaneous Approach (ICD-10-PCS; 2022-05-23)
PROC: 0W9G3ZZ Drainage of Peritoneal Cavity, Percutaneous Approach (ICD-10-PCS; principal; 2022-05-24)
PROC: 0W9B3ZZ Drainage of Left Pleural Cavity, Percutaneous Approach (ICD-10-PCS; 2022-05-24)
DX: R62.7 Adult failure to thrive (principal); G93.41 Metabolic encephalopathy; J18.9 Pneumonia, unspecified organism; N17.9 Acute kidney failure, unspecified; E44.0 Moderate protein-calorie malnutrition; R64 Cachexia; C34.90 Malignant neoplasm of unspecified part of unspecified bronchus or lung; C79.51 Secondary malignant neoplasm of bone; J98.11 Atelectasis; J91.0 Malignant pleural effusion; C79.89 Secondary malignant neoplasm of other specified sites; R18.0 Malignant ascites; K86.2 Cyst of pancreas; I82.890 Acute embolism and thrombosis of other specified veins; E86.0 Dehydration; Z20.822 Contact with and (suspected) exposure to COVID-19; E11.9 Type 2 diabetes mellitus without complications; Z86.73 Personal history of transient ischemic attack (TIA), and cerebral infarction without residual deficits; I10 Essential (primary) hypertension; F02.80 Dementia in other diseases classified elsewhere, unspecified severity, without behavioral disturbance, psychotic disturbance, mood disturbance, and anxiety; G30.9 Alzheimer's disease, unspecified; E03.9 Hypothyroidism, unspecified; E78.5 Hyperlipidemia, unspecified; R32 Unspecified urinary incontinence; Z79.84 Long term (current) use of oral hypoglycemic drugs; F25.9 Schizoaffective disorder, unspecified; Z79.899 Other long term (current) drug therapy; Z79.4 Long term (current) use of insulin; Z79.82 Long term (current) use of aspirin; E88.09 Other disorders of plasma-protein metabolism, not elsewhere classified; Y95 Nosocomial condition; R13.10 Dysphagia, unspecified
CPT/HCPCS: 36410; 36415; 70450-TC; 71045-TC; 71260-TC; 76705-TC; 76942-TC; 80048-TC; 80061-TC; 80076-TC; 81001; 82105; 82378; 82784; 82962-TC; 83605-TC; 83615-TC; 83690-TC; 83735-TC; 83880; 84100-TC; 84155; 84155-TC; 84165; 84443-TC; 84484-TC; 85025-TC; 85610-TC; 85730-TC; 86300; 86301; 86304; 86334; 87070-TC; 87075-TC; 87081-TC; 87102-TC; 88108-TC; 88305-TC; 88341; 88342; 89051-TC; 92526; 92611-TC; 94799-TC; C9113; C9803; G0378; J0696; J1815; J2270; J2543; J3480; J3490; J7030; J7042; J7050; J7060; J7070; Q9967